=== PATIENT | male | born 1950 | race Caucasian/White ===

== ENCOUNTER 2020-08-13 09:56 | Day surgery (SDC) | payer MEDICARE, SELFPAY ==
[2020-08-08 14:00] VITALS: BMI 20.3
--- NOTE | 2020-08-12 11:54 | P.CONAN_ITS ---
Documented by User: Dahlia Hirsch 08/12/20 13:13 HPI - Anesthesia Eval Consult details Narrative: 70yo M for Colonoscopy [facility] Past Medical History Medical History (Updated 08/13/20 @ 12:26 by Cristina Spring) AAA (abdominal aortic aneurysm) without rupture Anemia Arthritis High cholesterol Hx of peripheral neuropathy Surgical History Surgical History History of back surgery History of hydrocelectomy Hx of arthroscopy of right knee Hx of colonoscopy Social History Social History Smoking Status: Former smoker Years Smoked: 40 Smoking Quit Date: 11/2019 Use of substances other than those prescribed or required for medical reasons: Yes Substance Use Frequency: Daily Advance Directives: No Advance Directives Information Provided: No Advance Directives on File: No Meds Allergies Allergy/AdvReac Type Severity Reaction Status Date / Time No Known Allergies Allergy Mild NONE Verified 08/08/20 14:03 Exam Exam Date and Time: August 12, 2020 1154 Height,Weight and Vital Signs: Height 6 ft Weight 68.039 kg Pertinent Lab Results Pertinent Lab Results: Laboratory Tests 06/04/20 06/04/20 10:13 10:13 WBC 3.5 L Hgb 11.6 L Hct 37.2 L Plt Count 171 Sodium 139 Potassium 4.4 Chloride 106 BUN 20 H Creatinine 1.06 Narrative Narrative: ABD AORTA US 10/2019: 4.1x4.2cm, no appreciable change from 03/2019 imaging (Plan for yearly surveillance per vascular note) EKG 05/2020: SB@50, no ischemic changes per cardiac note Assessment and Plan Assessment Anesthesia Assessment: Chart Reviewed Documented by User: Cristina Spring 08/13/20 12:28 [facility] Past Medical History Medical History (Updated 08/13/20 @ 12:26 by Cristina Spring) AAA (abdominal aortic aneurysm) without rupture Anemia Arthritis High cholesterol Hx of peripheral neuropathy Family History Family history of problems with anesthesia: No Surgical History Surgical History History of back surgery History of hydrocelectomy Hx of arthroscopy of right knee Hx of colonoscopy History of Problems with Anesthesia: No Social History Social History Smoking Status: Former smoker Years Smoked: 40 Smoking Quit Date: 11/2019 Use of substances other than those prescribed or required for medical reasons: Yes Substance Use Frequency: Daily Advance Directives: No Advance Directives Information Provided: No Advance Directives on File: No Meds Allergies Allergy/AdvReac Type Severity Reaction Status Date / Time No Known Allergies Allergy Mild NONE Verified 08/08/20 14:03 Exam Height,Weight and Vital Signs: Vital Signs Temp Pulse Resp BP Pulse Ox 08/13/20 11:14 97.2 F 65 16 134/78 99 Airway Mallampati Class: II TM Dist: >3cm Neck ROM: Full Heart: RRR Lungs: CTAB Assessment and Plan Assessment Anesthesia Assessment: Anesthesia Plan Discussed and Chart Reviewed Final Anesthetic Review NPO: Yes ASA Class: III Final Preanesthetic Review: No Changes in Pt Med Stat, Meds/Allgs Chart Reviewed, Consent Obtained/Reviewed and Anes Risks/Benef Reviewed Patient Risk: Intermediate Anesthetic Plan Anesthetic Plan: MAC: Disposition: Standard PACU
[2020-08-13 11:14] VITALS: BP 134/78; PULSE 65; RESP 16; TEMP 36.2; O2SAT 99
[2020-08-13] MEDS: Lactated Ringers 1,000 ML 100 ML IVCONT (11:48)
[2020-08-13 14:54] VITALS: BP 127/80; PULSE 60; RESP 12; TEMP 36.6; O2SAT 97
--- NOTE | 2020-08-13 14:59 | PM.PROC ---
Brief Operative Note Date of procedure: 08/13/20 Pre-op diagnosis: Colon cancer screening, hx of TA in 2007 Post-op diagnosis: other (Cecal polyp, TC polyp, Diverticulosis Sigmoid) Procedure: Colonoscopy with complex excisional polypectomy--cecum: Orise 12cc. multiple excisional sites, RESOLUTION CLIPPING, SECOND site TC 1mm polyp straddling fold. Anesthesia: MAC (RA Millard) Surgeon: Carmen Hendrickson Estimated blood loss (mL): 0 Pathology: other (Cecal, transverse colon.) Condition: stable Disposition: PACU
[2020-08-13 15:13] VITALS: BP 123/76; PULSE 52; RESP 17; TEMP 36.6; O2SAT 98
--- NOTE | 2020-08-13 15:38 | HO.POSTANES ---
Post Anesthesia Evaluation Post Anesthesia Evaluation Vital Signs: Vital Signs Temp Pulse Resp BP Pulse Ox 08/13/20 15:13 97.9 F 52 17 123/76 98 08/13/20 14:54 97.9 F 60 12 127/80 97 08/13/20 11:14 97.2 F 65 16 134/78 99 Anesthesia: Monitored Mental Status: Awake Pain Control: Satisfactory Nausea/Vomiting: None Hydration: Adequate Anesthesia-Related Issues: No Anes. Related Issues
--- NOTE | 2020-11-13 10:00 | OP_ITS ---
SURGEON: Carmen Hendrickson MD PREOPERATIVE DIAGNOSIS: See below. POSTOPERATIVE DIAGNOSIS: Colonic polyps. PROCEDURE PERFORMED: Colonoscopy with excisional complex polypectomy in the cecum, excision of diminutive polyp in the splenic flexure. There was use of approximately 12 mL of ORISE. Resolution clipping x2. ESTIMATED BLOOD LOSS: Less than 10 mL. Resolution clipping was placed. COMPLICATIONS: No complications. ANESTHESIA: Monitored. ANESTHESIOLOGIST: Angela Millard CRNA. ASSISTANTS: No geological survey field assistant. SPECIMENS: Specimen removed; cecal and splenic. PREOPERATIVE DIAGNOSES: Colon cancer screening. The patient has a history of colonoscopy done in 2007 with the removal of a small tubular adenoma. Medical history includes hyperlipidemia, former smoker, dilated abdominal aorta in the mid range of the proximal aorta at 4 cm. He has had no clinical changes medically since his preprocedure tele-visit in May of this year. [employer] AUTOMOTIVE TECHNICIAN: Dr. Hendrickson. CONDITION: Postop, stable. FINDINGS: Digital rectal exam revealed prostate to be slightly firm. Video colonoscope was introduced without difficulty. It was navigated into the rectosigmoid and sigmoid. Prep was fair to good. There was residual turbid fluid that required a moderate amount of flushing and suctioning. Diverticula were noted in the sigmoid colon. The scope advanced slowly into the descending, transverse, ascending colon down into the cecum. Appendiceal orifice was seen. Ileocecal valve was well seen. On a fold in the cecum, there was a polyp that was flat and appeared multicentric. Due to the degree of flatness of this polyp, snare removal could not be done. Abnormal tissue was removed excisionally with multiple bites with the cold biopsy forceps. The mucosal defect was reapposed with resolution clips. Complex polypectomy in the cecum. Rest of exam was unremarkable. Anorectal verge was clear. Plan: Due to complexity of the cecal polyp repeat Colonoscopy will be done in 2-3 years. Carmen Hendrickson MD MEN/MODL / [id number] MTDD
== END 2020-08-13 15:36 | disposition home or self-care (01) ==
PROVIDERS: PCP Internal Medicine; Visit Provider Internal Medicine Gastroenterology
PROC: 0DJD8ZZ Inspection of Lower Intestinal Tract, Via Natural or Artificial Opening Endoscopic (ICD-10-PCS; CPT 45378; principal; 2020-08-13 11:40)
DX: Z12.11 Encounter for screening for malignant neoplasm of colon (principal); Z86.010 Personal history of colon polyps; D12.0 Benign neoplasm of cecum; D12.3 Benign neoplasm of transverse colon; K57.30 Diverticulosis of large intestine without perforation or abscess without bleeding; E78.00 Pure hypercholesterolemia, unspecified; Z79.899 Other long term (current) drug therapy; Z87.891 Personal history of nicotine dependence
CPT/HCPCS: 45380; 45381; 88305

== ENCOUNTER 2020-08-14 14:35 | Outpatient (REF) | payer MEDICARE, SELFPAY ==
--- NOTE | 2020-08-14 15:32 | XR_ITS ---
EXAMINATION: BILATERAL HAND AND WRIST X-RAY CLINICAL INFORMATION: Pain COMPARISON: None TECHNIQUE: 4 views of each hand and wrist FINDINGS: Right: Bone alignment is normal. No fracture or dislocation is seen. There is arthritis at the IP joint of the thumb, DIP joint of the second finger and first USP joint of the thumb. There is a 1 x 4 mm soft tissue calcification adjacent to the proximal phalanx of the thumb. Left: There is slight radial subluxation at the third MCP joint. Bone alignment is otherwise normal. No fracture or dislocation is seen. There is arthritis at the IP joints of the first, second and third fingers. There is arthritis at the third MCP joint. There is a small soft tissue calcification adjacent to the ulnar side of the proximal phalanx of the second finger in near the PIP joint. XR/XR hand wrist RT IMPRESSION: Right: Arthritis at the IP joints and first USP joint of the thumb. Left: Arthritis at the IP joints of the first second and third fingers and third MCP joint.
--- NOTE | 2020-08-14 15:32 | XR_ITS ---
EXAMINATION: BILATERAL HAND AND WRIST X-RAY CLINICAL INFORMATION: Pain COMPARISON: None TECHNIQUE: 4 views of each hand and wrist FINDINGS: Right: Bone alignment is normal. No fracture or dislocation is seen. There is arthritis at the IP joint of the thumb, DIP joint of the second finger and first CUSTODIAL joint of the thumb. There is a 1 x 4 mm soft tissue calcification adjacent to the proximal phalanx of the thumb. Left: There is slight radial subluxation at the third MCP joint. Bone alignment is otherwise normal. No fracture or dislocation is seen. There is arthritis at the IP joints of the first, second and third fingers. There is arthritis at the third MCP joint. There is a small soft tissue calcification adjacent to the ulnar side of the proximal phalanx of the second finger in near the PIP joint. XR/XR hand wrist LT IMPRESSION: Right: Arthritis at the IP joints and first CUSTODIAL joint of the thumb. Left: Arthritis at the IP joints of the first second and third fingers and third MCP joint.
[2020-08-14 16:00] LABS: Imm Gran Abs Auto 0.01 X10*3/uL (0.00-0.03); Imm Gran Pct Auto 0.3 % (0.0-0.4); MANUAL DIFF FLAG SCAN; Mean Corpuscular Volume 85.7 fL (80-98); PLT CLUMP 1; SCAN SMEAR FLAG 1
[2020-08-14 16:02] LABS: Basophils Percent Auto 0.8 % (0-2); Eosinophils Absolute Auto 0.1 X10*3/uL (0.0-0.4); Eosinophils Percent Auto 1.7 % (0-4); Hematocrit 37.7 % (42-52); Hemoglobin 12.2 g/dl (14.0-18.0); Lymphocytes Percent Auto 28.6 % (20-40); Mean Corpuscular HGB Conc 32.4 g/dl (31.0-36.0); Mean Corpuscular Hemoglobin 27.7 pg (27.0-33.0); Mean Platelet Volume 9.6 fL (9.4-12.4); Monocytes Absolute Auto 0.8 X10*3/uL (0.1-1.2); Monocytes Percent Auto 22.4 % (2-11); Neutrophils Absolute Auto 1.6 X10*3/uL (2.0-8.3); Neutrophils Percent Auto 46.2 % (45-73); Platelet Count 147 X10*3/uL (160-400); White Blood Count 3.5 X10*3/uL (4.8-10.8)
[2020-08-14 16:03] LABS: PLT ABN DIST 1
[2020-08-14 16:25] LABS: SLIDE REVIEW VERIFIED
[2020-08-14 16:40] LABS: Alanine Aminotransferase 10 U/L (0-40); Albumin Level 4.2 g/dL (3.5-5.0); Alkaline Phosphatase 59 U/L (39-117); Anion Gap 13 (12-20); Aspartate Amino Transferase 20 U/L (5-37); Bilirubin Total 0.9 mg/dL (0.0-1.0); Blood Urea Nitrogen 22 mg/dL (9-16); Calcium 8.5 mg/dL (8.4-10.2); Carbon Dioxide 26 mmol/L (22-29); Chloride 101 mmol/L (96-108); Estimated Glomerular Filt Rate 59; Glucose Random 103 mg/dL (60-115); Potassium 3.7 mmol/l (3.3-5.1); Sodium 136 mmol/L (135-145); Total Protein 7.1 g/dL (6.5-8.0)
[2020-08-14 16:52] LABS: Erythrocyte Sedimentation Rate 18 MM/HR (0-15)
[2020-08-14 16:55] LABS: Rheumatoid Factor 399.1 IU/mL (<15.0)
[2020-08-17 13:52] LABS: Antibody to SS-A Antigen <1.0 NEG AI (<1.0 NEG); Antibody to SS-B Antigen <1.0 NEG AI (<1.0 NEG)
[2020-08-18 15:06] LABS: Anti Nuclear Antibody Pattern Nuclear, Homogeneous; Anti Nuclear Antibody Screen POSITIVE (NEGATIVE); Anti Nuclear Antibody Titer 1:40 titer
[2020-08-19 21:46] LABS: Cyclic Citrullinated Peptide >250 UNITS
== END 2020-08-14 14:36 | disposition home or self-care (01) ==
LOC: HO.LAB 14:35
PROVIDERS: PCP Internal Medicine; Referring Provider Internal Medicine; Visit Provider Student in an Organized Health Care Education/Training Program
DX: M25.50 Pain in unspecified joint (principal); M72.2 Plantar fascial fibromatosis
CPT/HCPCS: 36415; 73110; 73130; 80053; 85025; 85652; 86038; 86039; 86140; 86200; 86235; 86431; 99202

== ENCOUNTER 2020-08-20 10:29 | Outpatient (REF) | payer MEDICARE, SELFPAY ==
--- NOTE | 2020-08-20 10:33 | CT_ITS ---
EXAMINATION: CT CHEST SCREENING CLINICAL INFORMATION: Smoking history COMPARISON: Previous abdominal and pelvic CT scan March 2019 and chest x-ray July 2008 TECHNIQUE: Multidetector volumetric CT imaging of the chest is performed without contrast using low dose technique. Additional 2D coronal and sagittal reformatted images and axial 3D maximum intensity projection (MIP) images are generated on the CT workstation. This CT examination was performed using dose optimization techniques as appropriate, variously including the following: *Automated exposure control *Adjustment of mA and/or kV according to patient size (this includes techniques or standardized protocols for targeted exams where dose is matched to indication/reason for exam; i.e. extremities or head) *Use of iterative reconstruction technique DLP: 48 mGy-cm FINDINGS: LUNGS: There is mild biapical pleural and parenchymal scarring. There is mild paraseptal emphysema. There is a 3 mm right upper lobe nodule axial image 219. There is question of tiny 1 mm right upper lobe nodules axial image 256 and 261 series 5. There is question of mild peripheral interstitial disease at the lung bases. No endobronchial or endotracheal lesion is seen. MEDIASTINUM: There is a small calcified right paratracheal mediastinal lymph node. There are small noncalcified mediastinal lymph nodes. No enlarged hilar or mediastinal lymph nodes are seen. The visualized thyroid gland is unremarkable. The ascending thoracic aorta is dilated measuring 4.5 cm. The descending thoracic aorta is slightly dilated measuring 3.3 cm. The heart does not appear enlarged. There is moderate to severe coronary artery calcification. There is no pericardial effusion. PLEURA: There is no pleural effusion. No pleural mass or thickening. AXILLA: No lymphadenopathy. UPPER ABDOMEN: There is a low-attenuation lesion in the left lobe of the liver measuring 1 cm axial image 54 series 3. This is similar to previous CT March 2019 probably represents a cyst. The visualized upper abdominal aorta is ectatic measuring 3 x 3.4 cm in transverse and AP dimension. OSSEOUS STRUCTURES: There are degenerative changes of the spine. CT/CT lung screening IMPRESSION: Mild emphysema. Question mild peripheral interstitial disease Small pulmonary nodules or micronodules. Moderate to severe coronary artery calcification. Dilated thoracic and visualized upper abdominal aorta. ASSESSMENT: Lung-RADS category 2: Benign RECOMMENDATION: Annual low-dose chest CT follow-up recommended.
[2020-08-20 13:57] LABS: Glucose Urine UA NEG (NEG); Leukocyte Esterase Urine NEG (NEG); Nitrite Urine NEG (NEG); Specific Gravity - Urine 1.025 (1.005-1.025); Urine Blood NEG (NEG); Urine Ketones NEG (NEG); Urine Protein NEG (NEG-TRACE)
[2020-08-20 13:59] LABS: Appearance Urine CLEAR; Color Urine YELLOW
[2020-08-20 14:12] LABS: RBC Urine 0 /HPF (0); WBC Urine 0 /HPF (0-4)
[2020-08-21 07:28] LABS: Hepatitis A Antibody IgM 0.19 Index (0-0.79); ~Hepatitis A Antibody IgM Nonreactive (Nonreactive)
[2020-08-21 11:37] LABS: Complement C3 133 mg/dL (82-185)
[2020-08-21 13:36] LABS: Anti DNA DS Antibody <1 IU/mL; SM/Ribonucleoprotein Ab <1.0 NEG AI (<1.0 NEG); Smith Protein <1.0 NEG AI (<1.0 NEG)
[2020-08-22 04:05] LABS: HBS Num1 0.11 mIU/mL (0-7.99); HBc Num1 0.07 S/CO (0.00-0.79); Hepatitis B Core Antibody Nonreactive (Nonreactive); ~HepC Num1 0.15 S/CO (0.00-0.79); ~Hepatitis B Surface Antibody NONREACTIVE (Nonreactive); ~Hepatitis C Antibody Nonreactive (Nonreactive)
[2020-08-22 04:16] LABS: HBsAGNum1 0.15 S/CO (0.00-0.99); Hepatitis B Surface Antigen Negative (Negative)
[2020-08-22 20:37] LABS: TS Negative Control Passed; TS Panel A 0; TS Panel B 0; TS Positive Control Passed; TSpotTB Negative (SeeBelow)
== END 2020-08-20 10:30 | disposition home or self-care (01) ==
LOC: HO.CT 10:29
PROVIDERS: Absent Provider Student in an Organized Health Care Education/Training Program; PCP Internal Medicine; Visit Provider Surgery
DX: Z12.2 Encounter for screening for malignant neoplasm of respiratory organs (principal); Z87.891 Personal history of nicotine dependence; D12.6 Benign neoplasm of colon, unspecified; K59.00 Constipation, unspecified; R14.0 Abdominal distension (gaseous)
CPT/HCPCS: 36415; 71250; 81001; 86160; 86225; 86235; 86481; 86704; 86706; 86709; 86803; 87340; 99212

== ENCOUNTER → 2020-09-11 08:17 | Outpatient (BNVA) | payer MEDICARE, SELFPAY | PROVIDERS: PCP Internal Medicine; Referring Provider Internal Medicine; Visit Provider Student in an Organized Health Care Education/Training Program | DX: M05.9 Rheumatoid arthritis with rheumatoid factor, unspecified (principal); M19.90 Unspecified osteoarthritis, unspecified site | CPT/HCPCS: 99212 ==

== ENCOUNTER → 2020-12-03 10:06 | Outpatient (BNVA) | payer MEDICARE, SELFPAY | PROVIDERS: Visit Provider Urology | DX: R35.1 Nocturia (principal); R39.12 Poor urinary stream; N32.0 Bladder-neck obstruction | CPT/HCPCS: 81002; 99202 ==

== ENCOUNTER 2020-12-04 11:23 | Outpatient (REF) | payer MEDICARE, SELFPAY ==
[2020-12-04 13:06] LABS: Basophils Absolute Auto 0.1 X10*3/uL (0.0-0.2); Eosinophils Absolute Auto 0.1 X10*3/uL (0.0-0.4); Hemoglobin 11.5 g/dl (14.0-18.0); MANUAL DIFF FLAG SCAN; Neutrophils Percent Auto 43.7 % (45-73); PLT CLUMP 1; Red Cell Distribution Width 19.6 % (11.0-16.0); SCAN SMEAR FLAG 1
[2020-12-04 13:08] LABS: Basophils Percent Auto 1.6 % (0-2); Eosinophils Percent Auto 1.9 % (0-4); Hematocrit 35.1 % (42-52); Imm Gran Abs Auto 0.01 X10*3/uL (0.00-0.03); Imm Gran Pct Auto 0.3 % (0.0-0.4); Lymphocytes Absolute Auto 1.3 X10*3/uL (1.2-4.9); Mean Corpuscular HGB Conc 32.8 g/dl (31.0-36.0); Mean Corpuscular Volume 91.6 fL (80-98); Mean Platelet Volume 10.5 fL (9.4-12.4); Monocytes Absolute Auto 0.7 X10*3/uL (0.1-1.2); Monocytes Percent Auto 18.5 % (2-11); Neutrophils Absolute Auto 1.6 X10*3/uL (2.0-8.3); Platelet Count 142 X10*3/uL (160-400); Red Blood Count 3.83 X10*6/uL (4.60-5.80); White Blood Count 3.7 X10*3/uL (4.8-10.8)
[2020-12-04 13:37] LABS: Alanine Aminotransferase 41 U/L (0-40); Albumin Level 4.3 g/dL (3.5-5.0); Alkaline Phosphatase 54 U/L (39-117); Anion Gap 10 (12-20); Aspartate Amino Transferase 31 U/L (5-37); Blood Urea Nitrogen 23 mg/dL (9-16); C Reactive Protein 0.14 mg/dL (< or = 0.50); Carbon Dioxide 28 mmol/L (22-29); Chloride 105 mmol/L (96-108); Estimated Glomerular Filt Rate > 60; Glucose Random 89 mg/dL (60-115); Potassium 4.5 mmol/L (3.3-5.1); Sodium 138 mmol/L (135-145); Total Protein 6.7 g/dL (6.5-8.0)
[2020-12-04 14:05] LABS: SLIDE REVIEW VERIFIED
[2020-12-04 14:08] LABS: Prostate Specific Antigen 2.64 ng/mL (<0.05-4.0)
[2020-12-04 14:18] LABS: Erythrocyte Sedimentation Rate 7 MM/HR (0-15)
== END 2020-12-04 11:24 | disposition home or self-care (01) ==
LOC: HO.LAB 11:23
PROVIDERS: Student in an Organized Health Care Education/Training Program; Visit Provider Urology
DX: Z12.5 Encounter for screening for malignant neoplasm of prostate (principal); M05.9 Rheumatoid arthritis with rheumatoid factor, unspecified; N13.8 Other obstructive and reflux uropathy; N40.1 Benign prostatic hyperplasia with lower urinary tract symptoms
CPT/HCPCS: 36415; 80053; 84153; 85025; 85652; 86140

== ENCOUNTER → 2020-12-13 10:00 | Outpatient (BNVA) | payer MEDICARE, SELFPAY | PROVIDERS: Visit Provider Student in an Organized Health Care Education/Training Program | DX: M05.9 Rheumatoid arthritis with rheumatoid factor, unspecified (principal); M25.50 Pain in unspecified joint | CPT/HCPCS: 99212 ==

== ENCOUNTER 2021-01-20 08:31 | Outpatient (REF) | payer MEDICARE, SELFPAY ==
--- NOTE | ~2021-01-20 | US_ITS ---
EXAMINATION: US PELVIS LIMITED (BLADDER) CLINICAL INFORMATION: Poor urinary stream. COMPARISON: CT abdomen and pelvis 05/03/2019. TECHNIQUE: Real-time imaging of the bladder. FINDINGS: BLADDER: Well distended and normal. Bilateral ureteral jets are demonstrated. Prevoid bladder volume is 316 mL. Postvoid bladder volume is 18.0 mL. Normal size prostate with a volume of 33.5 mL. US/US bladder IMPRESSION: Normal appearance of the bladder. No significant prostatomegaly. Post void residual volume of 18 mL.
== END 2021-01-20 08:32 | disposition home or self-care (01) ==
LOC: HO.HMGCX 08:31
PROVIDERS: Visit Provider Urology
DX: N32.0 Bladder-neck obstruction (principal); R39.12 Poor urinary stream
CPT/HCPCS: 76857

== ENCOUNTER → 2021-01-28 09:52 | Outpatient (BNVA) | payer MEDICARE, SELFPAY | PROVIDERS: PCP Internal Medicine; Visit Provider Urology | DX: Z13.9 Encounter for screening, unspecified (principal); N32.0 Bladder-neck obstruction; R35.1 Nocturia | CPT/HCPCS: 52000; 81002; 99212 ==

== ENCOUNTER 2021-03-11 08:02 | Outpatient (REF) | payer MEDICARE, SELFPAY ==
[2021-03-11 09:54] LABS: Eosinophils Absolute Auto 0.1 X10*3/uL (0.0-0.4); MANUAL DIFF FLAG SCAN; Neutrophils Percent Auto 36.2 % (45-73); PLT CLUMP 1; SCAN SMEAR FLAG 1
[2021-03-11 09:56] LABS: Basophils Percent Auto 1.4 % (0-2); Eosinophils Percent Auto 2.4 % (0-4); Hematocrit 37.5 % (42-52); Lymphocytes Absolute Auto 0.9 X10*3/uL (1.2-4.9); Lymphocytes Percent Auto 32.8 % (20-40); Mean Corpuscular Hemoglobin 28.8 pg (27.0-33.0); Mean Corpuscular Volume 90.1 fL (80-98); Mean Platelet Volume 10.1 fL (9.4-12.4); Monocytes Absolute Auto 0.8 X10*3/uL (0.1-1.2); Monocytes Percent Auto 27.2 % (2-11); Platelet Count 117 X10*3/uL (160-400); Red Blood Count 4.16 X10*6/uL (4.60-5.80); Red Cell Distribution Width 16.5 % (11.0-16.0); White Blood Count 2.9 X10*3/uL (4.8-10.8)
[2021-03-11 10:10] LABS: PLT ABN DIST 1
[2021-03-11 10:27] LABS: SLIDE REVIEW VERIFIED
[2021-03-11 10:46] LABS: Alanine Aminotransferase 29 U/L (0-40); Alkaline Phosphatase 61 U/L (39-117); Anion Gap 13 (12-20); Aspartate Amino Transferase 31 U/L (5-37); Bilirubin Total 1.5 mg/dL (0.0-1.0); Blood Urea Nitrogen 24 mg/dL (9-16); C Reactive Protein 1.08 mg/dL (< or = 0.50); Calcium 8.8 mg/dL (8.4-10.2); Carbon Dioxide 24 mmol/L (22-29); Chloride 106 mmol/L (96-108); Estimated Glomerular Filt Rate > 60; Glucose Random 94 mg/dL (60-115); Potassium 4.3 mmol/L (3.3-5.1); Sodium 139 mmol/L (135-145); Total Protein 6.9 g/dL (6.5-8.0)
[2021-03-11 11:24] LABS: Erythrocyte Sedimentation Rate 18 MM/HR (0-15)
== END 2021-03-11 08:03 | disposition home or self-care (01) ==
LOC: HO.LAB 08:02
PROVIDERS: PCP Internal Medicine; Visit Provider Student in an Organized Health Care Education/Training Program
DX: M05.9 Rheumatoid arthritis with rheumatoid factor, unspecified (principal); M72.2 Plantar fascial fibromatosis; G62.9 Polyneuropathy, unspecified; M79.642 Pain in left hand; M79.641 Pain in right hand; M25.512 Pain in left shoulder; E78.00 Pure hypercholesterolemia, unspecified; Z87.891 Personal history of nicotine dependence; Z79.82 Long term (current) use of aspirin; Z79.899 Other long term (current) drug therapy
CPT/HCPCS: 36415; 80053; 85025; 85652; 86140; 99212

== ENCOUNTER 2021-05-15 09:20 | Outpatient (REF) | payer MEDICARE, SELFPAY ==
[2021-05-15 10:51] LABS: Basophils Percent Auto 1.7 % (0-2); Eosinophils Absolute Auto 0.1 X10*3/uL (0.0-0.4); Eosinophils Percent Auto 3.4 % (0-4); Hematocrit 35.1 % (42-52); Lymphocytes Absolute Auto 0.8 X10*3/uL (1.2-4.9); Lymphocytes Percent Auto 36.2 % (20-40); MANUAL DIFF FLAG SCAN; Mean Corpuscular HGB Conc 31.3 g/dl (31.0-36.0); Mean Corpuscular Hemoglobin 27.4 pg (27.0-33.0); Mean Corpuscular Volume 87.3 fL (80-98); Mean Platelet Volume 9.5 fL (9.4-12.4); Monocytes Absolute Auto 0.7 X10*3/uL (0.1-1.2); Monocytes Percent Auto 28.9 % (2-11); Neutrophils Absolute Auto 0.7 X10*3/uL (2.0-8.3); Neutrophils Percent Auto 29.8 % (45-73); Platelet Count 115 X10*3/uL (160-400); Red Blood Count 4.02 X10*6/uL (4.60-5.80); Red Cell Distribution Width 17.2 % (11.0-16.0); SCAN SMEAR FLAG 1
[2021-05-15 10:56] LABS: White Blood Count 2.3 X10*3/uL (4.8-10.8)
[2021-05-15 10:59] LABS: Glucose Urine UA NEG (NEG); Leukocyte Esterase Urine NEG (NEG); Nitrite Urine NEG (NEG); PH 5.5 (5.0-8.0); Specific Gravity - Urine >= 1.030 (1.005-1.025); Urine Blood NEG (NEG); Urine Ketones NEG (NEG); Urine Protein TRACE MG/DL (NEG-TRACE)
[2021-05-15 11:08] LABS: Alanine Aminotransferase 18 U/L (0-40); Albumin Level 3.9 g/dL (3.5-5.0); Alkaline Phosphatase 60 U/L (39-117); Anion Gap 10 (12-20); Aspartate Amino Transferase 26 U/L (5-37); Blood Urea Nitrogen 21 mg/dL (9-16); C Reactive Protein 0.72 mg/dL (< or = 0.50); Calcium 8.9 mg/dL (8.4-10.2); Carbon Dioxide 25 mmol/L (22-29); Chloride 108 mmol/L (96-108); Estimated Glomerular Filt Rate > 60; Glucose Random 95 mg/dL (60-115); Potassium 4.2 mmol/L (3.3-5.1); Sodium 139 mmol/L (135-145); Total Protein 6.8 g/dL (6.5-8.0)
[2021-05-15 11:20] LABS: Appearance Urine CLEAR; Color Urine YELLOW
[2021-05-15 11:25] LABS: Erythrocyte Sedimentation Rate 23 MM/HR (0-15)
[2021-05-15 11:56] LABS: Bacteria Urine TRACE /LPF; RBC Urine 0 /HPF (0); Squamous Epithelial Cell Urine TRACE /LPF; WBC Urine 0-2 /HPF (0-4)
[2021-05-15 12:29] LABS: SLIDE REVIEW VERIFIED
== END 2021-05-15 09:21 | disposition home or self-care (01) ==
LOC: HO.LAB 09:20
PROVIDERS: PCP Internal Medicine; Visit Provider Student in an Organized Health Care Education/Training Program
DX: M05.9 Rheumatoid arthritis with rheumatoid factor, unspecified (principal); N32.0 Bladder-neck obstruction
CPT/HCPCS: 36415; 80053; 81001; 85025; 85652; 86140; 99212

== ENCOUNTER → 2021-06-19 10:42 | Outpatient (BNVA) | payer MEDICARE, SELFPAY | PROVIDERS: PCP Internal Medicine; Visit Provider Internal Medicine | DX: J44.9 Chronic obstructive pulmonary disease, unspecified (principal); M05.9 Rheumatoid arthritis with rheumatoid factor, unspecified; D61.818 Other pancytopenia; Z87.891 Personal history of nicotine dependence | CPT/HCPCS: 99202 ==

== ENCOUNTER 2021-07-04 08:49 | Outpatient (REF) | payer MEDICARE, SELFPAY ==
--- NOTE | 2021-07-04 16:45 | PFT_ITS ---
FLOWS: FEV1 97% of predicted at 3.33 L. FVC 101% of predicted at 4.75 L. FEV1 to FVC ratio of 0.70. No bronchodilator response except in small to medium airways. LUNG VOLUMES: Total lung capacity 93% of predicted at 6.93 L. Residual volume 99% of predicted at 2.61 L. Slow vital capacity 89% of predicted at 4.33 L. Expiratory reserve volume 139% of predicted at 1.92 L. Diffusion capacity is moderately decreased. IMPRESSION: Mild reversible obstructive ventilatory defect with no bronchodilator response except in small to medium airways. Decreased diffusion capacity suggests emphysema. MD DONTA Walker/MODL / [id number]
== END 2021-07-04 08:50 | disposition home or self-care (01) ==
LOC: HO.RESP 08:49
PROVIDERS: PCP Internal Medicine; Visit Provider Internal Medicine
DX: J44.9 Chronic obstructive pulmonary disease, unspecified (principal); Z87.891 Personal history of nicotine dependence
CPT/HCPCS: 94060; 94727; 94729

== ENCOUNTER → 2021-07-14 10:27 | Outpatient (BNVA) | payer MEDICARE, SELFPAY | PROVIDERS: PCP Internal Medicine; Visit Provider Nurse Practitioner Family | DX: M05.9 Rheumatoid arthritis with rheumatoid factor, unspecified (principal); M72.2 Plantar fascial fibromatosis | CPT/HCPCS: 99212 ==

== ENCOUNTER 2021-07-23 09:59 | Outpatient (REF) | payer MEDICARE, SELFPAY ==
[2021-07-23 11:15] LABS: MANUAL DIFF FLAG NO
[2021-07-23 11:57] LABS: Basophils Absolute Auto 0.1 X10*3/uL (0.0-0.2); Basophils Percent Auto 1.2 % (0-2); Eosinophils Percent Auto 0.9 % (0-4); Hematocrit 37.6 % (42-52); Hemoglobin 11.9 g/dl (14.0-18.0); Imm Gran Abs Auto 0.01 X10*3/uL (0.00-0.03); Imm Gran Pct Auto 0.2 % (0.0-0.4); Lymphocytes Absolute Auto 1.5 X10*3/uL (1.2-4.9); Lymphocytes Percent Auto 35.8 % (20-40); Mean Corpuscular HGB Conc 31.6 g/dl (31.0-36.0); Mean Corpuscular Volume 85.3 fL (80-98); Monocytes Absolute Auto 0.8 X10*3/uL (0.1-1.2); Monocytes Percent Auto 18.1 % (2-11); Neutrophils Absolute Auto 1.9 X10*3/uL (2.0-8.3); Neutrophils Percent Auto 43.8 % (45-73); Platelet Count 187 X10*3/uL (160-400); Red Blood Count 4.41 X10*6/uL (4.60-5.80); Red Cell Distribution Width 18.5 % (11.0-16.0); White Blood Count 4.3 X10*3/uL (4.8-10.8)
[2021-07-23 12:27] LABS: Alanine Aminotransferase 22 U/L (0-40); Albumin Level 4.1 g/dL (3.5-5.0); Alkaline Phosphatase 53 U/L (39-117); Anion Gap 10 (12-20); Aspartate Amino Transferase 22 U/L (5-37); Bilirubin Total 0.7 mg/dL (0.0-1.0); Blood Urea Nitrogen 23 mg/dL (9-16); Calcium 9.1 mg/dL (8.4-10.2); Carbon Dioxide 29 mmol/L (22-29); Chloride 105 mmol/L (96-108); Estimated Glomerular Filt Rate > 60; Glucose Random 80 mg/dL (60-115); Potassium 3.9 mmol/L (3.3-5.1); Sodium 140 mmol/L (135-145); Total Protein 6.9 g/dL (6.5-8.0)
[2021-07-23 12:38] LABS: Erythrocyte Sedimentation Rate 12 MM/HR (0-15)
== END 2021-07-23 10:00 | disposition home or self-care (01) ==
LOC: HO.LAB 09:59
PROVIDERS: Absent Provider Nurse Practitioner Family; PCP Internal Medicine; Visit Provider Internal Medicine
DX: M05.9 Rheumatoid arthritis with rheumatoid factor, unspecified (principal); J44.9 Chronic obstructive pulmonary disease, unspecified; I71.4 Abdominal aortic aneurysm, without rupture; E78.00 Pure hypercholesterolemia, unspecified; Z87.891 Personal history of nicotine dependence; Z79.52 Long term (current) use of systemic steroids; Z79.899 Other long term (current) drug therapy
CPT/HCPCS: 36415; 80053; 85025; 85652; 86140; 99212

== ENCOUNTER → 2021-07-30 09:39 | Outpatient (BNVA) | payer MEDICARE, SELFPAY | PROVIDERS: PCP Internal Medicine; Visit Provider Urology | DX: N32.0 Bladder-neck obstruction (principal); R39.12 Poor urinary stream | CPT/HCPCS: 99212 ==

== ENCOUNTER → 2021-09-23 12:41 | Outpatient (BNVA) | payer MEDICARE, SELFPAY | PROVIDERS: PCP Internal Medicine; Visit Provider Urology | DX: N32.0 Bladder-neck obstruction (principal) | CPT/HCPCS: 52000; 99212 ==

== ENCOUNTER 2021-11-10 06:39 | Day surgery (SDC) | payer MEDICARE, SELFPAY ==
--- NOTE | 2021-11-07 12:59 | HO.ANESPROP2 ---
Documented by User: Dahlia Hirsch NP 11/07/21 13:02 HPI - Anesthesia Eval Consult details Narrative: 71yo M for Laser Ablation Prostate w/Green Light PMFSH Active Problems Active Problems: All Active Problems (Updated 11/04/21 @ 08:29 by Nikki Addison RN) Polyarthralgia (Acute) Plantar fasciitis, bilateral (Acute) Tubular adenoma of colon (Acute) Constipation (Acute) Abdominal bloating (Acute) JOSE positive (Acute) Seropositive rheumatoid arthritis (Acute) Bladder outlet obstruction (Acute) Weak urinary stream (Acute) Nocturia more than twice per night (Acute) Pancytopenia (Chronic) COPD (chronic obstructive pulmonary disease) (Acute) History of smoking at least 1 pack per day for at least 30 years (Acute) Past Medical History Medical History (Updated 11/04/21 @ 08:29 by Nikki Addison RN) AAA (abdominal aortic aneurysm) without rupture Anemia Arthritis COPD (chronic obstructive pulmonary disease) Hematuria Hematuria High cholesterol History of smoking at least 1 pack per day for at least 30 years Hx of peripheral neuropathy Rheumatoid arthritis Family History Family History Sister Rheumatoid arthritis Cancer Sister Bronchitis Family history of problems with anesthesia: No Surgical History Surgical History (Updated 11/04/21 @ 08:19 by Nikki Addison RN) History of back surgery History of hydrocelectomy Hx of arthroscopy of right knee Hx of colonoscopy (~2007) History of Problems with Anesthesia: No Social History Social History Alcohol intake: never Patient Tobacco Use Status: Former Tobacco user Cigarette Packs Per Day: 1.5 Years Smoked: 45 Use of substances other than those prescribed or required for medical reasons: Yes Substance Use Type: Marijuana Substance Use Frequency: Daily Are you DNR?: No Advance Directives: No Advance Directives Information Provided: No Advance Directives on File: No Recently lost weight without trying: Unsure Nutrition Risks: No Nutritional Risk Meds Allergies Allergy/AdvReac Type Severity Reaction Status Date / Time No Known Allergies Allergy Mild NONE Verified 09/23/21 12:59 Home Medications Medication Instructions Recorded Confirmed Last Taken Type multivitamin 1 tab PO DAILY 12/16/20 11/03/21 Unknown History atorvastatin 20 mg tablet 20 mg PO DAILY 01/28/21 11/03/21 Unknown History aspirin 81 mg tablet,delayed 1 tab PO DAILY 02/18/21 11/03/21 Unknown History release albuterol sulfate 90 mcg/actuation 2 puff INHALATION Q6H PRN 05/15/21 11/03/21 Unknown History aerosol inhaler Exam Exam Date and Time: November 07, 2021 1259 Height,Weight and Vital Signs: Height 6 ft Weight 67.132 kg Pertinent Lab Results Pertinent Lab Results: Laboratory Tests 07/23/21 07/23/21 11:14 11:14 WBC 4.3 L Hgb 11.9 L Hct 37.6 L Plt Count 187 D Sodium 140 Potassium 3.9 Chloride 105 Carbon Dioxide 29 BUN 23 H Creatinine 1.01 Assessment and Plan Assessment Anesthesia Assessment: Chart Reviewed Final Anesthetic Review Family History of Problems with Anesthesia: No History of Problems with Anesthesia: No Documented by User: Mariah Young MD 11/10/21 07:18 [facility] Past Medical History Medical History (Updated 11/04/21 @ 08:29 by Nikki Addison RN) AAA (abdominal aortic aneurysm) without rupture Anemia Arthritis COPD (chronic obstructive pulmonary disease) Hematuria Hematuria High cholesterol History of smoking at least 1 pack per day for at least 30 years Hx of peripheral neuropathy Rheumatoid arthritis Family History Family History Sister Rheumatoid arthritis Cancer Sister Bronchitis Surgical History Surgical History (Updated 11/04/21 @ 08:19 by Nikki Addison RN) History of back surgery History of hydrocelectomy Hx of arthroscopy of right knee Hx of colonoscopy (~2007) Social History Social History Alcohol intake: never Patient Tobacco Use Status: Former Tobacco user Cigarette Packs Per Day: 1.5 Years Smoked: 45 Use of substances other than those prescribed or required for medical reasons: Yes Substance Use Type: Marijuana Substance Use Frequency: Daily Are you DNR?: No Advance Directives: No Advance Directives Information Provided: No Advance Directives on File: No Recently lost weight without trying: Unsure Nutrition Risks: No Nutritional Risk Meds Allergies Allergy/AdvReac Type Severity Reaction Status Date / Time No Known Allergies Allergy Mild NONE Verified 09/23/21 12:59 Home Medications Medication Instructions Recorded Confirmed Last Taken Type multivitamin 1 tab PO DAILY 12/16/20 11/03/21 Unknown History atorvastatin 20 mg tablet 20 mg PO DAILY 01/28/21 11/03/21 Unknown History aspirin 81 mg tablet,delayed 1 tab PO DAILY 02/18/21 11/03/21 Unknown History release albuterol sulfate 90 mcg/actuation 2 puff INHALATION Q6H PRN 05/15/21 11/03/21 Unknown History aerosol inhaler Exam Airway Mallampati Class: II (Missing upper teeth) TM Dist: >3cm Neck ROM: Full Heart: rrr Lungs: cta Assessment and Plan Assessment Anesthesia Assessment: Anesthesia Plan Discussed and Chart Reviewed Final Anesthetic Review NPO: Yes ASA Class: III Final Preanesthetic Review: No Changes in Pt Med Stat, Meds/Allgs Chart Reviewed and Consent Obtained/Reviewed Patient Risk: Intermediate Procedure Risk: Intermediate Anesthetic Plan Anesthetic Plan: GA Disposition: Standard PACU
[2021-11-10] VITALS (7 sets, daily range): BP systolic 118–133; BP diastolic 71–76; PULSE 51–62; RESP 16–20; TEMP 36.2–36.6; O2SAT 96–100
[2021-11-10] MEDS: Lactated Ringers 1,000 ML 100 ML IVCONT (07:09)
--- NOTE | 2021-11-10 09:53 | W.PM.OPN ---
Operative Note Operative Note Date of Service: 11/10/21 Narrative: PreOperative Diagnosis: Bladder outlet obstruction Post Operative Diagnosis: Bladder outlet obstruction Procedure: GreenLight laser enucleation of the prostate Surgeon: Dr Martín Awad Anesthesia: General Indications for procedure: History of bladder outlet obstruction. Treated with alpha-arnold and other medications. Still with symptoms. On cystoscopy in office has tight bladder neck. Recommendation for prostate procedure with laser enucleation of prostate. It has been discussed. Focus was placed on development of retrograde examination which is a normal part of this procedure. Procedure: After informed consent was verified the patient was brought to the operating room and placed in a supine position. Anesthesia was administered per protocol. Patient was placed in modified dorsal lithotomy position and prepped and draped in a sterile fashion. Safety pause time-out was confirmed. Antibiotics have been given. Twenty-four [place] laser cystoscope was inserted per urethra. No abnormalities found the anterior posterior urethra. The bladder was filled on both ureteric orifices were seen in normal position away from our area of interest. Using a GreenLight laser settings of 80 w incisions were made at the 5 and 7 o'clock position. They were taken down and then laterally on each side. They were brought from the bladder neck down to the level of the veru. These defined the lateral aspects of the median lobe area. The median lobe was ablated and enucleated tissue removed. Minimal impingement from lateral lobes. After medial area had been cleaned decision was made to complete procedure. When this was completed debris and pieces of prostate removed from the bladder. Both ureteric orifices were reviewed again in shown to be patent in away from any areas of energy damage. The apical area was reviewed in any stray ooze was controlled. A 22 [place] 30 cc balloon Jameson catheter was placed over stylet into the bladder. Clear efflux was obtained. 30 cc was placed in the balloon and gentle traction was placed. A snap was used to hold tension once the patient will be moved and transported. Once transportation its finish this novel be removed. A belladonna and opiate suppository was placed for postprocedure pain management. He tolerated procedure well was extubated in the operating and transferred in a stable condition to the recovery area. Pathology: none Drains: Jameson catheter
== END 2021-11-10 11:06 | disposition home or self-care (01) ==
PROVIDERS: PCP Internal Medicine; Visit Provider Urology
PROC: (CPT 52648; principal; 2021-11-10 08:40)
DX: N32.0 Bladder-neck obstruction (principal); R31.9 Hematuria, unspecified; R39.12 Poor urinary stream; D64.9 Anemia, unspecified; J44.9 Chronic obstructive pulmonary disease, unspecified; E78.00 Pure hypercholesterolemia, unspecified; M06.9 Rheumatoid arthritis, unspecified; Z87.891 Personal history of nicotine dependence; F12.90 Cannabis use, unspecified, uncomplicated
CPT/HCPCS: 52648; J1956; J3010

== ENCOUNTER → 2021-11-13 09:22 | Outpatient (BNVA) | payer MEDICARE, SELFPAY | PROVIDERS: PCP Internal Medicine; Visit Provider Urology | DX: Z46.6 Encounter for fitting and adjustment of urinary device (principal); N32.0 Bladder-neck obstruction; R33.9 Retention of urine, unspecified | CPT/HCPCS: 51700; 51798; 99212 ==

== ENCOUNTER 2021-11-19 08:36 | Outpatient (REF) | payer MEDICARE, SELFPAY ==
[2021-11-19 09:47] LABS: Alanine Aminotransferase 11 U/L (0-40); Aspartate Amino Transferase 18 U/L (5-37); Cholesterol 95 mg/dL; HDL Cholesterol 22 mg/dL; LDL Cholesterol Calculated 58 mg/dl; Triglycerides 76 mg/dL
== END 2021-11-19 08:37 | disposition home or self-care (01) ==
LOC: HO.LAB 08:36
PROVIDERS: PCP Internal Medicine; Visit Provider Internal Medicine Cardiovascular Disease
DX: I71.4 Abdominal aortic aneurysm, without rupture (principal)
CPT/HCPCS: 36415; 80061; 84450; 84460

== ENCOUNTER → 2021-12-24 09:11 | Outpatient (BNVA) | payer MEDICARE, SELFPAY | PROVIDERS: PCP Internal Medicine; Visit Provider Urology | DX: N32.0 Bladder-neck obstruction (principal) | CPT/HCPCS: 51798; 99212 ==

== ENCOUNTER → 2021-12-29 10:33 | Outpatient (BNVA) | payer MEDICARE, SELFPAY | PROVIDERS: PCP Internal Medicine; Visit Provider Surgery | DX: R22.0 Localized swelling, mass and lump, head (principal) | CPT/HCPCS: 99202 ==

== ENCOUNTER 2022-01-14 07:33 | Outpatient (REF) | payer MEDICARE, SELFPAY ==
[2022-01-14 07:38] VITALS: BMI 20.9
[2022-01-14 07:40] VITALS: BP 101/64; PULSE 56; RESP 16; TEMP 36.7; O2SAT 98
[2022-01-14 08:30] VITALS: BP 109/74; PULSE 54; RESP 16; O2SAT 98
--- NOTE | 2022-01-14 08:30 | W.PM.OPN ---
Operative Note Operative Note Date of Service: 01/14/22 Narrative: Preop diagnosis: Scalp nodules times 3 Postop diagnosis: Scalp nodules x3 Procedure: Excision of scalp nodules x3 under local anesthesia Surgeon: Rasta Mix MD Patient is 71-year-old male who wanted scalp masses on on the parietal area removed. I had seen him in the office for this. He was initially scheduled for removal of 2 scalp nodules but he had stated that he wanted a 3rd nodule removed He understood the technique of excision under local anesthesia. He was aware of the risks, benefits, and alternatives.. He was brought to the minor procedure room and placed in a reclining position. The area of the scalp nodules which were all on the parietal area was prepped and draped. Lidocaine 1% was used for local anesthesia. I made an incision on the skin overlying 1 scalp nodule using blade 15. This carried down to full-thickness skin subcutaneous fat. This was about a 7mm nodule. I dissected this off of the rest of subcutaneous layer. This was not clearly defined I closed the incision with full-thickness nylon 3-0 interrupted sutures. I proceeded to make another incision on the scalp nodule. Excision was done in the same manner. This nodule or mass which was not well-defined was excised using scissors. was about a 4 mm nodule. The 3rd nodule was about 4 mm as well. This was also excised the same fashion. All incisions were closed with nylon 3-0 interrupted sutures. Bacitracin dressings were then applied. The patient tolerated procedure well. There were no complication noted. He was given wound care instructions. He will be seen in the office for removal sutures.
[2022-01-14 09:08] LABS: Basophils Absolute Auto 0.1 X10*3/uL (0.0-0.2); Basophils Percent Auto 1.3 % (0-2); Eosinophils Percent Auto 0.7 % (0-4); Hematocrit 30.7 % (42.0-52.0); Hemoglobin 9.5 g/dl (14.0-18.0); Imm Gran Abs Auto 0.05 X10*3/uL (0.00-0.03); Imm Gran Pct Auto 1.1 % (0.0-0.4); Lymphocytes Absolute Auto 1.4 X10*3/uL (1.2-4.9); Lymphocytes Percent Auto 32.4 % (20-40); MANUAL DIFF FLAG SCAN; Mean Corpuscular HGB Conc 30.9 g/dl (31.0-36.0); Mean Corpuscular Hemoglobin 23.8 pg (27.0-33.0); Mean Corpuscular Volume 76.8 fL (80.0-98.0); Monocytes Percent Auto 22.5 % (2-11); NRBC Pct Auto 0.9 /100WBC (0.0-0.2); Neutrophils Absolute Auto 1.9 x10*3/uL (2.0-8.3); Platelet Count 250 X10*3/uL (160-400); Red Cell Distribution Width 29.9 % (11.0-16.0); SCAN SMEAR FLAG 1; White Blood Count 4.5 X10*3/uL (4.8-10.8)
[2022-01-14 09:18] LABS: Alanine Aminotransferase 12 U/L (0-40); Albumin Level 4.2 g/dL (3.5-5.0); Alkaline Phosphatase 55 U/L (39-117); Anion Gap 13 (12-20); Aspartate Amino Transferase 13 U/L (5-37); Bilirubin Total 1.2 mg/dL (0.0-1.0); Blood Urea Nitrogen 25 mg/dL (9-16); Calcium 9.6 mg/dL (8.4-10.2); Carbon Dioxide 28 mmol/L (22-29); Chloride 103 mmol/L (96-108); Estimated Glomerular Filt Rate > 60; Glucose Random 94 mg/dL (60-115); Iron 190 mcg/dL (45-160); Percent Iron Saturation 67 % (15-50); Potassium 4.6 mmol/L (3.3-5.1); Sodium 139 mmol/L (135-145); Total Iron Binding Capacity 283 mcg/dL (228-428); Unsaturated Iron Binding 93 ug/dL
[2022-01-14 09:38] LABS: Ferritin 436 ng/mL (20-250)
[2022-01-14 09:45] LABS: Folate 13.3 ng/mL (> or = 4.0); Vitamin B12 710 pg/mL (200-900)
[2022-01-14 10:58] LABS: RET ABN SCTR 1; Reticulocyte Percent 1.3 % (0.5-1.8)
[2022-01-14 12:43] LABS: Immature Retic Fraction 15.8 % (2.3-13.4); Retic HGB Equivalent 24.8 pg (30.0-35.0)
[2022-01-14 12:44] LABS: SLIDE REVIEW VERIFIED
== END 2022-01-14 07:34 | disposition home or self-care (01) ==
LOC: HO.MS 07:33
PROVIDERS: Internal Medicine; PCP Internal Medicine; Visit Provider Surgery
PROC: (CPT 11421; principal; 2022-01-14 08:00)
DX: R22.0 Localized swelling, mass and lump, head (principal); M06.9 Rheumatoid arthritis, unspecified; D64.9 Anemia, unspecified; D61.818 Other pancytopenia; E78.00 Pure hypercholesterolemia, unspecified; Z87.891 Personal history of nicotine dependence
CPT/HCPCS: 11421; 11420 ×2; 36415; 80053; 82607; 82728; 82746; 83540; 85025; 85045; 88305; 88312

== ENCOUNTER → 2022-01-28 08:41 | Outpatient (BNVA) | payer MEDICARE, SELFPAY | PROVIDERS: PCP Internal Medicine; Referring Provider Internal Medicine; Visit Provider Surgery | DX: R22.0 Localized swelling, mass and lump, head (principal) | CPT/HCPCS: 99212 ==

== ENCOUNTER 2022-01-30 14:57 | Outpatient (REF) | payer MEDICARE, SELFPAY ==
--- NOTE | ~2022-01-30 | XR_ITS ---
EXAMINATION: XR CHEST CLINICAL INFORMATION: COPD. Dyspnea. COMPARISON: Previous chest x-ray July [address] August 2020 TECHNIQUE: 2 views of the chest were obtained. FINDINGS: The cardiac and mediastinal contours are stable. The lungs are well inflated. The lungs are clear. There is no pleural effusion or pneumothorax. There are degenerative changes of the spine. XR/XR chest 2V IMPRESSION: Well-inflated lungs. No evidence for acute disease in the chest.
== END 2022-01-30 14:58 | disposition home or self-care (01) ==
LOC: HO.XRAY 14:57
PROVIDERS: PCP Internal Medicine; Visit Provider Internal Medicine
DX: J44.9 Chronic obstructive pulmonary disease, unspecified (principal); R06.00 Dyspnea, unspecified
CPT/HCPCS: 71046

== ENCOUNTER 2022-03-03 08:17 | Outpatient (REF) | payer MEDICARE, SELFPAY ==
--- NOTE | ~2022-03-03 | CT_ITS ---
EXAMINATION: CT CHEST SCREENING CLINICAL INFORMATION: Former smoker. COMPARISON: Previous chest CT August 2020 TECHNIQUE: Multidetector volumetric CT imaging of the chest is performed without contrast using low dose technique. Additional 2D coronal and sagittal reformatted images and axial 3D maximum intensity projection (MIP) images are generated on the CT workstation. This CT examination was performed using dose optimization techniques as appropriate, variously including the following: *Automated exposure control *Adjustment of mA and/or kV according to patient size (this includes techniques or standardized protocols for targeted exams where dose is matched to indication/reason for exam; i.e. extremities or head) *Use of iterative reconstruction technique DLP: 52 mGy-cm FINDINGS: LUNGS: There is evidence of emphysema. There is mild biapical pleural parenchymal scarring. There are small pulmonary nodules that are stable. Largest pulmonary nodules measures 3 mm at the right lung apex axial image 78 series 5 and 4 mm at the left lung apex axial image 72 series 5. No new pulmonary nodule is seen. There are increased peripheral reticular markings at the lung bases questionable for mild interstitial disease. No bronchiectasis or endobronchial or endotracheal lesion. MEDIASTINUM: The ascending thoracic aorta is dilated measuring 4.2 x 4.7 cm axial image 33 series 3. The descending thoracic aorta is slightly dilated measuring up to 3.3 cm. This is similar to previous exam. The heart does not appear enlarged. There is coronary artery calcification. There is no pericardial effusion. There are no enlarged hilar or mediastinal lymph nodes. PLEURA: There is no pleural effusion. No pleural mass or thickening. AXILLA: No lymphadenopathy. UPPER ABDOMEN: There is a 1 cm low-attenuation lesion in the left lobe of the liver that is stable and probably represents a small cyst. OSSEOUS STRUCTURES: There are degenerative changes of the spine. CT/CT lung screening IMPRESSION: Emphysema. Biapical pleural and parenchymal scarring and stable small pulmonary nodules. Coronary artery calcification and dilated ascending thoracic aorta. Question mild interstitial disease. ASSESSMENT: Lung-RADS category 2: Benign RECOMMENDATION: Annual low-dose chest CT follow-up recommended.
== END 2022-03-03 08:18 | disposition home or self-care (01) ==
LOC: HO.CT 08:17
PROVIDERS: PCP Internal Medicine; Visit Provider Physician Assistant Medical
DX: Z12.2 Encounter for screening for malignant neoplasm of respiratory organs (principal); Z87.891 Personal history of nicotine dependence
CPT/HCPCS: 71271

== ENCOUNTER → 2022-03-31 08:37 | Outpatient (BNVA) | payer MEDICARE, SELFPAY | PROVIDERS: PCP Internal Medicine; Referring Provider Internal Medicine; Visit Provider Internal Medicine Cardiovascular Disease | DX: R06.02 Shortness of breath (principal); I71.4 Abdominal aortic aneurysm, without rupture; I71.2 Thoracic aortic aneurysm, without rupture; Z79.899 Other long term (current) drug therapy | CPT/HCPCS: 93005; 99202 ==

== ENCOUNTER → 2022-04-21 08:18 | Outpatient (REF) | payer MEDICARE, SELFPAY ==
--- NOTE | ~2022-04-21 | NM_ITS ---
EXERCISE MYOCARDIAL PERFUSION STUDY INDICATION: Shortness of breath, assess for coronary disease and ischemia TECHNIQUE: The patient was brought in for an exercise perfusion study on 04/21/2022. Patient performed exercise as per [place] protocol and was injected 25 mCi of sestamibi once target heart rate was achieved. Images were obtained using the SPECT gamma camera interlaced with the gating device. Images were obtained in supine position. Resting perfusion study was performed on 04/22/2022. Patient was administered 25 mCi of sestamibi intravenously at rest. Images were then obtained in supine position. Total DLP 73mGy-cm. Images were processed with the software and compared side to side in short axis, horizontal long axis and vertical long axis views. FINDINGS: Raw images were reviewed. The stress perfusion study showed minimally decreased tracer uptake at the apex. No significant change with CT attenuation correction. The gated study shows normal LV systolic function with calculated LVEF of 64%. LV cavity is normal in size. The gated study shows normal wall thickening and contraction of segments. Resting study shows mildly decreased tracer uptake at the apex. Seen with uncorrected and corrected acquisition.. Gating at rest reveals normal wall motion with ejection fraction at 59%. The findings are consistent with no clear reversible defects. Fixed apical defect with normal contractility which could be from artifactual etiology.. NM/NM temi perf SPECT rest & str IMPRESSION: 1. Myocardial perfusion imaging study shows no clear ischemia. Fixed apical defect with normal contractility which could be from artifactual etiology. 2. Gated LVEF is 64% during stress and 59% during rest. 3. Transient ischemic dilatation not present. EKG component of the test reported separately.
--- NOTE | 2022-04-21 08:20 | CA_ITS ---
Acquisition Time: 2022-04-21 08:38:09 Total Exercise Time: 00:04:35 Test Indications: Dyspnea Medications: SEE H Protocol: JUAN Max HR: 137 BPM 93% of Pred: 147 BPM Max BP: 152/078 mmHG Max Work Load: 4.6 METS Exercise stress test with exercise 4 min 35 sec of juan protocol ( stage 1), achieving 91% MPHR, ( reached 85% MPHR at 1 min 48 sec of walking and remained greater than that for the remainder of test), with moderate to severe SOB, no chest discomfort, with isolated PVC, with normotensive and brisk chronotropic response to exercise, without EKG changes meeting criteria for ischemia. In recovery there is a downslope of ST segment inferiorly and V5-V6. Breathing improved in recovery. Nuclear images pending. Test reviewed with Dr Treviño. Referred By: Unruly Shukla Overread By: VIDA FOUNTAIN
== END ==
LOC: HO.CARD 08:18
PROVIDERS: Visit Provider Internal Medicine Cardiovascular Disease
DX: R07.9 Chest pain, unspecified (principal); R06.02 Shortness of breath
CPT/HCPCS: 78452; 93017; A9500

== ENCOUNTER → 2022-05-07 07:11 | Outpatient (REF) | payer MEDICARE, SELFPAY ==
--- NOTE | 2022-05-07 07:14 | CA_ITS ---
Transthoracic Echocardiogram Amended Patient (Last, First, Middle): Landon Villatoro, Gender: Male Date of : 1950 Age: 72 Procedure Date: 05/07/2022 Procedure Type: Transthoracic Echocardiogram Location: OP Height: 182.88 cm Weight: 69.85 kg BSA: 1.91 m2 Heart Rate: bpm BP: 115 / 70 mmHg Flight Test Mechanic: TO Referring MD: Unruly Shukla MD Symptoms: R06.02 - Shortness of breath Study Quality: Fair ECG Rhythm: Sinus Conclusions: - 1. Normal LV systolic function with impaired relaxation filling pattern 2. Trivial aortic regurgitation 3. Normal RV systolic pressure 4. [id number] dilatation of ascending aorta 5. No pericardial effusion Findings Left Ventricle Normal left ventricular size, thickness, and systolic function. The visually estimated ejection fraction is between 55-60%. Spectral Doppler is indicative of an impaired relaxation filling pattern. E/E prime ratio is between 8 and 15 consistent with indeterminate filling pressures. Right Ventricle Normal right ventricular cavity size and systolic function. Atria Both atria are normal in size. There is lipomatous hypertrophy of the interatrial septum. There is no evidence of interatrial shunt. Aortic Valve There is moderate calcification of the aortic valve. There is no aortic valve stenosis. There is trace (trivial) aortic valve regurgitation. Presence of Lambl's excrescence Mitral Valve Normal mitral valve structure and function. There is trace mitral valve regurgitation. There is no mitral valve stenosis. Pulmonic Valve The pulmonic valve is likely normal. Tricuspid Valve Normal tricuspid valve structure. There is trace tricuspid valve regurgitation. The right ventricular systolic pressure is normal. The right ventricular systolic pressure is 23 mmHg. Normal right atrial pressure. There is no evidence of pulmonary hypertension. Great Vessels The pulmonary artery was not well visualized. There is mild dilatation of the ascending aorta measuring 4.40 cm. Venous The inferior vena cava is normal in size and collapses greater than 50% with inspiration. Pericardium/Pleural There is no evidence of pericardial effusion. Prior Study Comparison No prior study available for comparison. Measurements 2D Linear Measurements IVSd: 0.88 0.6-0.9/0.6-1.0 cm LVIDd: 4.89 3.9-5.3/4.2-5.9 cm LVIDd Index: 2.56 2.4-3.2/2.2-3.1 cm/m2 LVIDs: 3.33 2.0-3.6 cm LVPWd: 0.89 0.7-1.1 cm LA Diam: 3.20 2.7-3.8/3.0-4.0 cm LAIDs Index: 1.68 1.5-2.3 cm/m2 LV Mass: 218.56 67-162/88-224 g LV Mass Index: 114.43 43-95/49-115 g/m2 LVOT Diam: 2.40 3.0+(-)1.3 cm 2D Volumes LA Vol: 25.70 2D Systolic Function EF 4C: 49.50 >55% EF 2C: 52.10 >55% Mitral Valve MV Pk E: 0.57 MV PK A: 0.64 MV Decel Time: 269.00 E/A: 0.90 E'Lateral: 8.38 E'Medial: 6.09 E/E' Med: 9.40 E/E' Lat: 6.80 PHT: 79.00 MVA PHT: 2.78 Decel [place]: 2.12 Aortic Valve AoV Pk Jose: 1.10 AoV Mn Jose: 0.71 AoV VTI: 0.24 AoV Pk Grad: 5.00 Aov Mn Grad: 2.00 ELAINE Cont.VTI: 3.38 LVOT LVOT Pk Jose: 0.80 LVOT Mn Jose: 0.44 LVOT VTI: 0.18 LVOT Pk Grad: 3.00 LVOT Mn Grad: 1.00 LVOT Diam: 2.40 LVOT Area: 4.52 Diastolic Function MV Pk E: 0.57 MV Pk A: 0.64 E/A: 0.90 E'Medial: 6.09 E/E' Med: 9.40 E' Laterial: 8.38 E/E' Lat: 6.80 Right Ventricle TAPSE (mm): 25.20 TVS' Jose: 12.00 Tricuspid Valve TR Pk Jose: 2.25 TR Pk Grad: 20.00 RA Press: 3.00 RVSP: 23.00 Great Vessels Aorta Sinus of Valsalva: 4.70 2.0-3.[address] [place]: 3.41 1.7-3.4 cm Ao Asc: 4.40 2.1-3.4 cm Updated in Other Vendor System with Status of Final Unruly Shukla MD electronically signed on 05/13/2022 9:09:55 AM with status of Final
== END ==
LOC: HO.CARD 07:11
PROVIDERS: Visit Provider Internal Medicine Cardiovascular Disease
DX: R06.02 Shortness of breath (principal)
CPT/HCPCS: 93306

== ENCOUNTER 2022-05-08 10:28 | Outpatient (REF) | payer MEDICARE, SELFPAY ==
--- NOTE | ~2022-05-08 | US_ITS ---
EXAMINATION: US RETROPERITONEAL LIMITED (AORTA) CLINICAL INFORMATION: Abdominal aortic aneurysm, without rupture. COMPARISON: Abdominal aorta dated 10/26/2019. TECHNIQUE: Kuhn-scale, color Doppler and spectral Doppler evaluation of the abdominal aorta. FINDINGS: There is atherosclerotic disease and an infrarenal abdominal aortic aneurysm The measurements of the aorta in maximum AP and transverse dimensions respectively are as follows: Proximal: 3.4 x 3.0 cm. Mid: 3.3 x 3.6 cm. Distal: 3.9 x 4.2 cm. PSV: 63.5 cm/s. The measurements of the common iliac arteries in maximum AP and TRV dimensions are as follows: Right Common Iliac Artery: 1.4 x 1.5 cm. Left Common Iliac Artery: 1.3 x 1.7 cm. US/US abdominal aortic aneurysm IMPRESSION: Infrarenal abdominal aortic aneurysm measuring 4.4 x 4.4 cm. Consider further evaluation with CTA or MRA as this has minimally increased in size compared to 10/26/2019.
== END 2022-05-08 10:29 | disposition home or self-care (01) ==
LOC: HO.HMGCX 10:28
PROVIDERS: Visit Provider Internal Medicine Cardiovascular Disease
DX: I71.4 Abdominal aortic aneurysm, without rupture (principal)
CPT/HCPCS: 76706

== ENCOUNTER → 2022-05-19 13:14 | Outpatient (BNVA) | payer MEDICARE, SELFPAY | PROVIDERS: PCP Internal Medicine; Referring Provider Internal Medicine; Visit Provider Internal Medicine Cardiovascular Disease | DX: R06.02 Shortness of breath (principal); I71.4 Abdominal aortic aneurysm, without rupture; I71.2 Thoracic aortic aneurysm, without rupture | CPT/HCPCS: 99212 ==

== ENCOUNTER 2022-06-19 13:22 | Outpatient (REF) | payer MEDICARE, SELFPAY ==
[2022-06-19 13:38] LABS: MANUAL DIFF FLAG NO
[2022-06-19 14:31] LABS: Basophils Absolute Auto 0.1 X10*3/uL (0.0-0.2); Basophils Percent Auto 1.5 % (0-2); Eosinophils Percent Auto 0.7 % (0-4); Hematocrit 33.8 % (42.0-52.0); Hemoglobin 10.2 g/dl (14.0-18.0); Imm Gran Abs Auto 0.08 X10*3/uL (0.00-0.03); Imm Gran Pct Auto 1.4 % (0.0-0.4); Lymphocytes Absolute Auto 1.6 X10*3/uL (1.2-4.9); Lymphocytes Percent Auto 27.4 % (20-40); Mean Corpuscular HGB Conc 30.2 g/dl (31.0-36.0); Mean Corpuscular Hemoglobin 24.5 pg (27.0-33.0); Mean Corpuscular Volume 81.1 fL (80.0-98.0); Monocytes Absolute Auto 0.9 X10*3/uL (0.1-1.2); Monocytes Percent Auto 15.6 % (2-11); NRBC Pct Auto 0.7 /100WBC (0.0-0.2); Neutrophils Absolute Auto 3.2 x10*3/uL (2.0-8.3); Neutrophils Percent Auto 53.4 % (45-73); Platelet Count 226 X10*3/uL (160-400); Red Blood Count 4.17 X10*6/uL (4.60-5.80); White Blood Count 5.9 X10*3/uL (4.8-10.8)
== END 2022-06-19 13:23 | disposition home or self-care (01) ==
LOC: HO.LAB 13:22
PROVIDERS: Internal Medicine; PCP Internal Medicine; Visit Provider Urology
DX: D61.818 Other pancytopenia (principal)
CPT/HCPCS: 36415; 85025

== ENCOUNTER 2022-07-01 10:59 | Outpatient (REF) | payer MEDICARE, SELFPAY ==
[2022-07-01 15:19] LABS: PSA,Total (Free>4and<10) 3.53 ng/mL (0.00-4.00)
== END 2022-07-01 11:00 | disposition home or self-care (01) ==
LOC: HO.10HDL 10:59
PROVIDERS: Visit Provider Urology
DX: R39.12 Poor urinary stream (principal); N32.0 Bladder-neck obstruction; Z12.5 Encounter for screening for malignant neoplasm of prostate
CPT/HCPCS: 36415; 84153

== ENCOUNTER → 2022-07-03 13:20 | Outpatient (BNVA) | payer MEDICARE, SELFPAY | PROVIDERS: PCP Internal Medicine; Visit Provider Urology | DX: N32.0 Bladder-neck obstruction (principal); R39.12 Poor urinary stream; R35.1 Nocturia | CPT/HCPCS: 99212 ==

== ENCOUNTER → 2022-08-17 09:33 | Outpatient (BNVA) | payer MEDICARE, SELFPAY | PROVIDERS: PCP Internal Medicine; Visit Provider Internal Medicine | DX: J44.9 Chronic obstructive pulmonary disease, unspecified (principal); M05.9 Rheumatoid arthritis with rheumatoid factor, unspecified; Z87.891 Personal history of nicotine dependence | CPT/HCPCS: 99212 ==

== ENCOUNTER → 2023-02-09 09:34 | Outpatient (BNVA) | payer MEDICARE, SELFPAY | PROVIDERS: PCP Internal Medicine; Visit Provider Internal Medicine | DX: J44.9 Chronic obstructive pulmonary disease, unspecified (principal); R06.02 Shortness of breath; Z87.891 Personal history of nicotine dependence | CPT/HCPCS: 99212 ==

== ENCOUNTER 2023-03-08 08:34 | Outpatient (REF) | payer MEDICARE, SELFPAY ==
--- NOTE | ~2023-03-08 | CT_ITS ---
EXAMINATION: LUNG CANCER SCREENING CT CHEST WITHOUT CONTRAST CLINICAL INFORMATION: Former smoker with 30 pack year history, quit 4 years ago COMPARISON: 01/01/2022 TECHNIQUE: Multidetector volumetric CT imaging of the chest was obtained noncontrast using low dose screening CT technique. Axial thin section 0.625 mm reformations in soft tissue and lung windows were obtained. Sagittal and coronal reformations were obtained. Axial MIP images were also created and reviewed. This CT examination was performed using dose optimization techniques as appropriate, variously including the following: *Automated exposure control *Adjustment of mA and/or kV according to patient size (this includes techniques or standardized protocols for targeted exams where dose is matched to indication/reason for exam; i.e. extremities or head) *Use of iterative reconstruction technique TOTAL EXAM DLP: 54 mGy-cm FINDINGS: PULMONARY NODULES: No suspicious pulmonary nodules. There are a couple stable nodules at the lung apices measuring 3-4 mm (see marie images). LUNGS / PLEURA: Wbsa-du-[id number] emphysema. Diffuse mild bronchial wall thickening without bronchiectasis. Dependent subsegmental atelectasis in the posterior segment of the right upper lobe and within the masoud pulmonis. Mild subpleural reticulation in the dependent lower lobes bilaterally. No pleural effusion or pneumothorax. MEDIASTINUM / SUNNY: Heart normal in size without pericardial effusion. Stable ascending aortic aneurysm measuring 4.6 x 4.5 cm. No lymphadenopathy. Coronary calcifications present. Imaged thyroid gland unremarkable. CHEST WALL / AXILLA: Unremarkable. UPPER ABDOMEN: Stable benign cyst in the left hepatic lobe. Stable splenomegaly measuring 15 cm. OSSEOUS STRUCTURES: No acute or suspicious osseous abnormalities. CT/CT lung screening IMPRESSION: * No evidence of pulmonary malignancy. * There are no pulmonary nodules that meet criteria for short interval follow-up at this time. * Mild emphysema and chronic airways disease. * Stable ascending aortic aneurysm measuring up to 4.6 cm. ASSESSMENT: Lung RADS category: 2S. Benign appearance or behavior. Nodules with a very low likelihood of becoming a clinically active cancer due to size or lack of growth. Continue annual screening with low-dose CT in 12 months. Probability of malignancy less than 1%. Clinically significant or potentially clinically significant findings (non lung cancer). Management as appropriate to the specific finding. RECOMMENDATION: Follow up low dose CT chest in 1 year.
== END 2023-03-08 08:35 | disposition home or self-care (01) ==
LOC: HO.CT 08:34
PROVIDERS: PCP Internal Medicine; Visit Provider Physician Assistant Medical
DX: Z12.2 Encounter for screening for malignant neoplasm of respiratory organs (principal); Z87.891 Personal history of nicotine dependence
CPT/HCPCS: 71271

== ENCOUNTER → 2023-05-03 08:55 | Outpatient (REF) | payer MEDICARE, SELFPAY ==
--- NOTE | 2023-05-03 08:57 | CA_ITS ---
Transthoracic Echocardiogram Amended Patient (Last, First, Middle): Landon Villatoro, Gender: Male Date of : 1950 Age: 73 Procedure Date: 05/03/2023 Procedure Type: Transthoracic Echocardiogram Location: OP Height: 182.88 cm Weight: 70.31 kg BSA: 1.91 m2 Heart Rate: 63 bpm BP: 120 / 70 mmHg Pharmaceutical Development Technician: FARHAN Referring MD: Unruly Shukla MD Supervisor Baking: Unruly Shukla MD Symptoms: I71.2 - Thoracic aortic aneurysm, without rupture Study Quality: Fair ECG Rhythm: Sinus Conclusions: - 1. Mildly reduced LV ejection fraction 45-50% with impaired relaxation filling pattern 2. Trivial aortic regurgitation 3. Ylff-qr-gqehuodk ascending aortic enlargement at 4.4 cm 4. Normal RV systolic pressure 5. No gross pericardial effusion Findings Left Ventricle Normal left ventricular cavity size. There is normal left ventricular wall thickness. The left ventricular systolic function is mildly decreased. The visually estimated ejection fraction is between 45-50%. Spectral Doppler is indicative of an impaired relaxation filling pattern. E/E prime ratio is between 8 and 15 consistent with indeterminate filling pressures. Peak GLS is -16.3%, which is reduced. Right Ventricle Normal right ventricular cavity size and systolic function. Atria The left atrium is normal in size. Interatrial shunt cannot be excluded. The right atrium was not well visualized. Aortic Valve There is mild calcification of the aortic valve. There is moderate thickening of the aortic valve. There is no aortic valve stenosis. There is trace (trivial) aortic valve regurgitation. Mitral Valve There is mild anterior and posterior mitral leaflet thickening. There is mild mitral annular calcification. There is trace mitral valve regurgitation. There is no mitral valve stenosis. Pulmonic Valve The pulmonic valve was not well visualized. Tricuspid Valve Likely normal tricuspid valve structure and function. There is mild tricuspid valve regurgitation. The right ventricular systolic pressure is normal. The right ventricular systolic pressure is 25 mmHg. Normal right atrial pressure. There is no evidence of pulmonary hypertension. Great Vessels The pulmonary artery was not well visualized. Venous The inferior vena cava is normal in size and collapses greater than 50% with inspiration. Pericardium/Pleural There is no evidence of pericardial effusion. Prior Study Comparison Changes noted compared to prior study dated: 05/07/2022. LV systolic function is reduced Measurements 2D Linear Measurements IVSd: 0.94 0.6-0.9/0.6-1.0 cm LVIDd: 4.65 3.9-5.3/4.2-5.9 cm LVIDd Index: 2.43 2.4-3.2/2.2-3.1 cm/m2 LVIDs: 3.00 2.0-3.6 cm LVPWd: 0.91 0.7-1.1 cm LA Diam: 2.80 2.7-3.8/3.0-4.0 cm LAIDs Index: 1.47 1.5-2.3 cm/m2 LV Mass: 180.38 67-162/88-224 g LV Mass Index: 94.44 43-95/49-115 g/m2 LVOT Diam: 2.40 3.0+(-)1.3 cm 2D Volumes LA Vol: 22.70 2D Systolic Function EF 4C: 50.10 >55% EF 2C: 45.00 >55% EF BiP: 47.50 >55% Mitral Valve MV Pk E: 0.55 MV PK A: 0.85 MV Decel Time: 385.00 E/A: 0.70 E'Lateral: 8.38 E'Medial: 6.42 E/E' Med: 8.60 E/E' Lat: 6.60 PHT: 113.00 MVA PHT: 1.95 Decel [place]: 1.44 Aortic Valve AoV Pk Jose: 1.06 AoV Mn Jose: 0.73 AoV VTI: 0.20 AoV Pk Grad: 4.00 Aov Mn Grad: 3.00 ELAINE Cont.VTI: 3.49 LVOT LVOT Pk Jose: 0.78 LVOT Mn Jose: 0.55 LVOT VTI: 0.16 LVOT Pk Grad: 2.00 LVOT Mn Grad: 1.00 LVOT Diam: 2.40 LVOT Area: 4.52 Diastolic Function MV Pk E: 0.55 MV Pk A: 0.85 E/A: 0.70 E'Medial: 6.42 E/E' Med: 8.60 E' Laterial: 8.38 E/E' Lat: 6.60 Right Ventricle TAPSE (mm): 26.70 TVS' Jose: 10.60 Tricuspid Valve TR Pk Jose: 2.34 TR Pk Grad: 22.00 RA Press: 3.00 RVSP: 25.00 Great Vessels Aorta Sinus of Valsalva: 4.60 2.0-3.5 cm Ao Asc: 4.40 2.1-3.4 cm Ao Arch: 3.40 Pulmonary Valve PV Pk Jose: 0.76 Peak PV Grad: 2.00 Updated in Other Vendor System with Status of Final Unruly Shukla MD electronically signed on 05/03/2023 4:43:42 PM with status of Final
== END ==
LOC: HO.CARD 08:55
PROVIDERS: PCP Internal Medicine; Visit Provider Internal Medicine Cardiovascular Disease
DX: I71.20 Thoracic aortic aneurysm, without rupture, unspecified (principal)
CPT/HCPCS: 93306; 93356

== ENCOUNTER → 2023-05-03 08:57 | Outpatient (BNV) | payer MEDICARE, SELFPAY | PROVIDERS: PCP Internal Medicine; Visit Provider Internal Medicine Cardiovascular Disease | DX: I36.1 Nonrheumatic tricuspid (valve) insufficiency (principal); I34.81 Nonrheumatic mitral (valve) annulus calcification | CPT/HCPCS: 93306 ==

== ENCOUNTER 2023-05-07 08:15 | Outpatient (REF) | payer MEDICARE, SELFPAY ==
--- NOTE | ~2023-05-07 | US_ITS ---
EXAMINATION: US RETROPERITONEAL LIMITED (AORTA) CLINICAL INFORMATION: Abdominal aortic aneurysm without rupture. COMPARISON: Ultrasound aorta 05/08/2022 and 10/26/2019. TECHNIQUE: Kuhn-scale, color Doppler and spectral Doppler evaluation of the abdominal aorta. FINDINGS: Plaque is seen throughout the aorta. There is an infrarenal abdominal aortic aneurysm present with maximal dimensions of 4.5 x 4.8 (previously 4.4 x 4.4 in 2021 and 4.2 x 4.1 in 2019) The measurements of the aorta in maximum AP and transverse dimensions respectively are as follows: Proximal: 3.7 x 3.8 cm. Mid: 2.6 x 3.1 cm. Distal: 2.7 x 2.9 cm. Aneurysm: 4.5 x 4.8 cm PSV: 22 cm/s. The measurements of the common iliac arteries in maximum AP and TRV dimensions are as follows: Right Common Iliac Artery: 2.0 x 1.9 cm. Left Common Iliac Artery: 1.6 x 1.8 cm. US/US abdominal aortic aneurysm IMPRESSION: Infrarenal abdominal aortic aneurysm has increased in size from 4.2 x 4.1 cm in 2021 to 4.5 x 4.8 cm today.
== END 2023-05-07 08:16 | disposition home or self-care (01) ==
LOC: HO.HMGCX 08:15
PROVIDERS: PCP Internal Medicine; Visit Provider Internal Medicine Cardiovascular Disease
DX: I71.40 Abdominal aortic aneurysm, without rupture, unspecified (principal)
CPT/HCPCS: 76706

== ENCOUNTER 2023-05-20 09:08 | Outpatient (AMB) | payer MEDICARE, SELFPAY ==
[2023-05-20 09:15] VITALS: BP 110/70; PULSE 56
--- NOTE | 2023-05-20 09:15 | MHC.OFFVIS ---
Intake Vital Signs 05/20/23 09:15 Height 6 ft Weight 147 lb 11.355 oz BMI 20.0 BP 110/70 Blood Pressure Location Lt brachial Position Sitting Pulse 56 Intake Visit Reasons: 1 year follow up after echo and ultrasound Intake Note: 1 year follow-up after echo and ultrasound Greens Or Grounds Superintendent Required: No Retail Wireless Sales Consultant: Retail Wireless Sales Consultant Present Accompanied by: Sister Allergies adhesive tape Adverse Reaction (Verified 02/09/23 10:24) Rash Medication List - Last Reconciled 05/20/23 by Unruly Shukla MD albuterol sulfate 90 mcg/actuation (ProAir HFA) 2 puffs inhalation Q6H PRN aspirin (Adult Aspirin Regimen) 81 mg PO DAILY atorvastatin 40 mg PO DAILY epoetin liliana (Procrit) 40,000 units subcut QWEEK prednisone 10 mg PO DAILY tiotropium bromide 2.5 mcg/actuation (Spiriva Respimat) 2 puffs inhalation DAILY HPI HPI Comments History of Present Illness Details Landon comes for follow-up. Recent echocardiogram shows reduction LV ejection fraction to 45-50%, on explain. He has also increasing size of these abdominal aortic aneurysm. He is going to see Dr. Montano in the near future. His ascending aortic aneurysm is stable. After noticing is low LV systolic function he has been scheduled for coronary CTA in near future. This is still pending. He has increasing exertional shortness of breath. No associated chest tightness. He remains anemic. Also has underlying COPD seeing Dr. [facility] Medical History Anemia Arthritis COPD (chronic obstructive pulmonary disease) Hematuria Hematuria High cholesterol History of smoking at least 1 pack per day for at least 30 years Hx of peripheral neuropathy Personal history of nicotine dependence Rheumatoid arthritis Scalp mass Surgical History History of back surgery History of hydrocelectomy History of removal of cyst Hx of arthroscopy of right knee Hx of colonoscopy (~2007) Family History Sister Rheumatoid arthritis Cancer Sister Bronchitis Maternal Grandmother Colon cancer Mother Lymph node cancer Social History Household Members: Children Housing: House Are you a primary dog daycare provider to a significant other at home: No Do you presently have visiting nurse or other home services: No Alcohol intake: never Patient Tobacco Use Status: Former Tobacco user Cigarette Packs Per Day: 1.5 Years Smoked: 44 service: No Current occupational status: retired Review of Systems Const Denies chills, Denies fatigue, Denies fever(s), Denies frequent falls, Denies weakness, Denies weight gain and Denies weight loss ENT Denies dizziness Card Denies chest pain, Denies leg edema, Denies lightheadedness, Denies palpitations, Denies dyspnea, Denies dyspnea on exertion, Denies orthopnea and Denies other (loss of consciousness) Resp Denies cough, Denies dyspnea and Denies dyspnea on exertion GI Denies hematochezia and Denies change in stool character Musc Denies abnormal gait, Denies muscle weakness, Denies numbness, Denies radiating pain into limb and Denies tingling Neuro Denies Abnormal speech present, Denies abnormal gait, Denies dizziness, Denies frequent falls, Denies numbness, Denies tingling and Denies weakness Endo Denies fatigue and Denies palpitations Physical Exam Vital Signs: Last Vital Signs Pulse 56 05/20/23 09:15 BP 110/70 05/20/23 09:15 BMI result Body Mass Index 20.0 Const General: cooperative, comfortable, no acute distress, alert and awake Nutritional Appearance: thin Orientation/consciousness: patient oriented x3 Limitations: no limitations Neck Neck: Yes trachea midline, Yes supple and Yes no JVD Chest Chest palpation & inspection: normal inspection of the chest Resp Effort & Inspection: normal respiratory effort Auscultation: clear to auscultation bilaterally and diminished lung sounds Cardio Jugular venous distension: no JVD Palpation: normal PMI Rate: bradycardic Rhythm: regular rhythm Heart sounds: S1 normal heart sound present, S2 normal heart sound present, no click, no gallops, no murmurs and no rubs GI Auscultation: normal bowel sounds Skin General skin exam: no rashes or lesions noted Neuro General: patient oriented x3 and no focal motor deficits Speech: No Abnormal speech present Extrem General: Yes no clubbing, cyanosis or edema Psych Appearance: grossly normal Office Procedures EKG Details: EKG shows sinus bradycardia 56 beats per minute [id number], Complete Assessment & Plan Assessment & Plan (1) Left ventricular systolic dysfunction (LVSD): Code(s): I51.9 - Heart disease, unspecified Plan: New LV systolic dysfunction could compared to last year. He had myocardial perfusion imaging last year which was within normal limits and did not show significant ischemia, could represent balanced ischemia and severe triple-vessel disease given his multiple risk factors. I would advise him to undergo angiogram and is scheduled for undergoing coronary CTA. Further treatment based on the findings. If he has significant coronary artery disease further consideration for revascularization will have to be made with multi disciplinary approach with Hematology as well as pulmonary. Meanwhile will start him on low-dose metoprolol therapy. Eventually add other neurohormonal modulation is. Signs and symptoms of heart failure were discussed. Clinically appears to be euvolemic. Continue aggressive vascular risk factor modification. (2) Ascending aortic aneurysm: Code(s): I71.21 - Aneurysm of the ascending aorta, without rupture Plan: Ascending aortic aneurysm which is mild to moderate and has remained stable. He also has abdominal aortic aneurysm which has increased in size. He is currently seeing Dr. Montano for abdominal aortic aneurysm. His ascending aortic aneurysm needs to be monitored by annual echocardiogram. No interventions required at this point time. Continue aspirin. Continue high-intensity statin therapy. Target goal LDL less than 70 mg/dL. Smoking cessation was applauded. Advised to avoid sudden isometric exercise. Will follow up in the clinic in 3 months time, sooner p.r.n.. Medications: New metoprolol succinate ER (Toprol XL) 25 mg PO DAILY 30 tabs 3RF Coding Level of Care Code Est Pt Level 4 (26952) Diagnoses Left ventricular systolic dysfunction (LVSD) I51.9 Ascending aortic aneurysm I71.21 CPT Codes EKG - CPT: 26464-[id number], Complete ([id number])
== END 2023-05-20 09:45 | disposition home or self-care (01) ==
PROVIDERS: PCP Internal Medicine; Referring Provider Internal Medicine; Visit Provider Internal Medicine Cardiovascular Disease
DX: I51.9 Heart disease, unspecified (principal); I71.21 Aneurysm of the ascending aorta, without rupture
CPT/HCPCS: 93010; 99214

== ENCOUNTER → 2023-05-20 09:08 | Outpatient (BNVA) | payer MEDICARE, SELFPAY | PROVIDERS: PCP Internal Medicine; Referring Provider Internal Medicine; Visit Provider Internal Medicine Cardiovascular Disease | DX: I51.9 Heart disease, unspecified (principal); I71.21 Aneurysm of the ascending aorta, without rupture | CPT/HCPCS: 93005; 99212 ==

== ENCOUNTER 2023-06-29 09:28 | Outpatient (AMB) | payer MEDICARE, SELFPAY ==
--- NOTE | 2023-06-29 09:31 | MHC.OFFVIS ---
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 Pt states he is tired all the time and has occasional chest pain. Pt states he is short of breath all the time when he is moving. Pt states he also get a fluttering feeling in his chest sometimes. Pt denies any dizziness. Pt states he gets bloodwork done every week due to his procrit injections. Pt states his numbers have been on the lower side and he did get a blood transfusion 2 weeks ago. 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 Had originally seen us back in October of 2019. Been lost to follow-up due to COVID. He now presents for surveillance follow-up with ultrasound which had been ordered by Cardiology. Has had no interval issues. [facility] Medical History Personal history of nicotine dependence Scalp mass Hematuria Hematuria COPD (chronic obstructive pulmonary disease) History of smoking at least 1 pack per day for at least 30 years Rheumatoid arthritis High cholesterol Anemia Arthritis Hx of peripheral neuropathy Surgical History History of removal of cyst Hx of colonoscopy (~2007) Hx of arthroscopy of right knee History of hydrocelectomy History of back surgery Family History Sister Rheumatoid arthritis Cancer Sister Bronchitis Maternal Grandmother Colon cancer Mother Lymph node cancer Social History Household Members: Children Housing: House Are you a primary summer child caregiver to a significant other at home: No Do you presently have visiting nurse or other home services: No Alcohol intake: never Patient Tobacco Use Status: Former Tobacco user Cigarette Packs Per Day: 1.5 Years Smoked: 45 service: No Current occupational status: retired Review of Systems Const All systems reviewed & are unremarkable except as noted in HPI and below Reports no additional complaints ENT Reports Normal hearing present Card Denies chest pain, Denies chest pain at rest, Denies chest pain with activity and Denies pedal edema Resp Denies cough GI Denies abdominal pain Musc Denies abnormal gait, Denies muscle cramps and Denies radiating pain into limb Skin/Breast Denies skin ulcer and Denies wounds Neuro Reports Normal hearing present and Denies abnormal gait Psych Reports no additional complaints Physical Exam Vital Signs: Last Vital Signs Pulse 62 06/29/23 09:33 BP 116/60 06/29/23 09:33 Pulse Ox 96 06/29/23 09:33 Oxygen Delivery Method Room Air 06/29/23 09:33 BMI result Body Mass Index 20.3 Const General: cooperative, healthy appearing and comfortable Orientation/consciousness: oriented to person, oriented to place and oriented to time HEENT Head: Yes normal to inspection Neck Neck: Yes normal visual inspection Carotids: no bruits Chest Chest palpation & inspection: normal inspection of the chest Resp Effort & Inspection: normal respiratory effort and able to speak in complete sentences Auscultation: clear to auscultation bilaterally, no crackles, no rales, no rhonchi and no wheezes Cardio Rate: regular rate Rhythm: regular rhythm Heart sounds: S1 normal heart sound present and S2 normal heart sound present Bruits: no carotid bruits Peripheral pulses: Peripheral pulses 2+ throughout GI Inspection: Yes normal to inspection Skin Wounds: no wounds Hair: normal Neuro General: oriented to person, oriented to place and oriented to time Cranial nerves: Yes CN's II-XII intact bilaterally and Yes Normal hearing present Cognition (Neuro): normal cognition Motor exam (neuro): 5/5 motor strength present throughout Extrem Other: venous exam: No significant superficial varicosities or spider telangiectasias, minimal edema General: No clubbing, No cyanosis and No edema Psych Appearance: grossly normal Mental Status: mental status grossly normal Speech and movement: Normal speech and movement present Results Reviewed Results Reviewed: Ultrasound dated E 05/07/2023 demonstrates aneurysm of 4.5 cm. Written report and images were reviewed. Assessment & Plan Assessment & Plan (1) Abdominal aortic aneurysm: Code(s): I71.4 - Abdominal aortic aneurysm, without rupture Qualifiers: Abdominal aorta location: infrarenal aorta Presence of rupture: without rupture Qualified Code(s): I71.43 - Infrarenal abdominal aortic aneurysm, without rupture Plan: In short patient has radiologic evidence of a AAA of 4.5 cm on ultrasound. We have discussed the pathophysiology of aortic aneurysms and the risk of ruptures. We have discussed rupture risk based on size. In addition we have discussed conservative measures and risk factor modification for prevention of increase in size of the aneurysm. the patient is scheduled for surveillance follow-up in approximately 6 months. Thank you for allowing us to participate in the care of this patient Orders: Orders US abdominal aortic aneurysm 6 Months I71.43 - Infrarenal abdominal aortic aneurysm, without rupture Coding Level of Care Code Est Pt Level 4 (14363) Diagnoses Infrarenal abdominal aortic aneurysm (AAA) without rupture I71.43 Abdominal aorta location: infrarenal aorta Presence of rupture: without rupture
[2023-06-29 09:33] VITALS: BP 116/60; PULSE 62; O2SAT 96; BMI 20.3
== END 2023-06-29 09:49 | disposition home or self-care (01) ==
PROVIDERS: PCP Internal Medicine; Visit Provider Surgery Vascular Surgery
DX: I71.43 Infrarenal abdominal aortic aneurysm, without rupture (principal)
CPT/HCPCS: 99213

== ENCOUNTER → 2023-06-29 09:28 | Outpatient (BNVA) | payer MEDICARE, SELFPAY | PROVIDERS: PCP Internal Medicine; Visit Provider Surgery Vascular Surgery | DX: I71.43 Infrarenal abdominal aortic aneurysm, without rupture (principal) | CPT/HCPCS: 99212 ==

== ENCOUNTER 2023-07-06 13:32 | Outpatient (AMB) | payer MEDICARE, SELFPAY ==
--- NOTE | 2023-07-06 13:48 | A.OFFVIS_ITS ---
Intake Intake Visit Reasons: 1Y PSA(SET) Intake Note: Patient is present for Follow Up PSA Urology Med: None Antibiotic Allergy: None Blood Thinner: Aspirin Pharmacy: [facility] Allergies adhesive tape Adverse Reaction (Verified 07/06/23 13:53) Rash HPI HPI Comments History of Present Illness Details Roberto is a pleasant male. He is a patient of . He is seen for the following urologic conditions - lower urinary tract symptoms Continue good bladder emptying PSA stable 12 month follow-up BPH Here for further follow-up after investigations Prostate intervention GreenLight laser prostatectomy October 2021 Prior Prostate medications tamsulosin 0.4 mg Current symptoms weakness of stream, urgency, nocturia Investigations - PSA 01/05 2.6, 07/09 3.5 off finasteride, 07/10 3.2 - Bladder US 01/05 35 gm, minimal residual PFSH Medical History Personal history of nicotine dependence Scalp mass Hematuria Hematuria COPD (chronic obstructive pulmonary disease) History of smoking at least 1 pack per day for at least 30 years Rheumatoid arthritis High cholesterol Anemia Arthritis Hx of peripheral neuropathy Surgical History History of removal of cyst Hx of colonoscopy (~2007) Hx of arthroscopy of right knee History of hydrocelectomy History of back surgery Family History Sister Rheumatoid arthritis Cancer Sister Bronchitis Maternal Grandmother Colon cancer Mother Lymph node cancer Social History Household Members: Children Housing: House Are you a primary care center manager to a significant other at home: No Do you presently have visiting nurse or other home services: No Alcohol intake: never Patient Tobacco Use Status: Former Tobacco user Cigarette Packs Per Day: 1.5 Years Smoked: 45 service: No Current occupational status: retired Review of Systems Const Denies chills and Denies fever(s) Card Reports no additional complaints and Denies syncope Resp Denies cough GI Denies abdominal pain and Denies heartburn Reports as per HPI and Denies change in libido Neuro Denies syncope Psych Denies change in libido Endo Denies change in libido Physical Exam Const General: cooperative, healthy appearing, comfortable and no acute distress Orientation/consciousness: patient oriented x3 HEENT Face and sinus: Yes normal facial exam Mouth: moist mucous membranes Neck Neck: Yes normal visual inspection, Yes full ROM and Yes trachea midline Chest Chest palpation & inspection: normal inspection of the chest Resp Effort & Inspection: normal respiratory effort, able to speak in complete sentences and no respiratory distress GI Inspection: Yes normal to inspection Back/Spine/Pelvis Cervical Spine: normal cervical lordosis Thoracic/Lumbar Spine: thoracic and lumbar spine normal to inspection Skin General skin exam: no rashes or lesions noted Neuro General: patient oriented x3, gait normal, tone normal and moves all extremities Extrem General: Yes normal to inspection and Yes capillary refill normal Assessment & Plan Assessment & Plan (1) Bladder outlet obstruction: Code(s): N32.0 - Bladder-neck obstruction (2) Weak urinary stream: Code(s): R39.12 - Poor urinary stream (3) Nocturia more than twice per night: Code(s): R35.1 - Nocturia Plan Twelve month follow-up PSA Orders: Orders Prostate Specific Antigen 364 Days N32.0 - Bladder-neck obstruction Patient Instructions: Imaging studies, laboratory and physical exam results were discussed and reviewed in detail. No major barriers to patient understanding were identified. An opportunity to ask questions regarding the treatment plan was provided. All questions were answered. The patient expressed understanding and agreement with the above treatment plan. The patient is aware they should contact our office by phone for worsening of their current condition or the appearance of new urologic symptoms. Compliance is encouraged with any medications and followup testing that is ordered. It is a privilege to participate in the urologic care of your patient. If you have any questions or concerns regarding treatment for the above conditions, or other urologic issues, please do not hesitate to contact me. The office telephone contact is [phone]. This note is constructed using voice recognition software. While every effort has been made to ensure accuracy certified wellness program coordinator errors may have been included. Yours sincerely, Dr Martín Awad MD, [facility] - Urology Providers of Expert, Compassionate Care for the Genitourinary System Coding Level of Care Code Est Pt Level 4 (02895) Diagnoses Bladder outlet obstruction N32.0 Weak urinary stream R39.12 Nocturia more than twice per night R35.1
== END 2023-07-06 14:25 | disposition home or self-care (01) ==
PROVIDERS: PCP Internal Medicine; Visit Provider Urology
DX: N32.0 Bladder-neck obstruction (principal); R39.12 Poor urinary stream; R35.1 Nocturia
CPT/HCPCS: 99214

== ENCOUNTER → 2023-07-06 13:32 | Outpatient (BNVA) | payer MEDICARE, SELFPAY | PROVIDERS: Visit Provider Urology | DX: N32.0 Bladder-neck obstruction (principal); R39.12 Poor urinary stream; R35.1 Nocturia | CPT/HCPCS: 99212 ==

== ENCOUNTER 2023-08-17 09:36 | Outpatient (AMB) | payer MEDICARE, SELFPAY ==
--- NOTE | 2023-08-17 09:42 | A.OFFVIS_ITS ---
Intake Vital Signs 08/17/23 09:44 Height 6 ft Weight 156 lb BMI 21.2 BP 100/62 Blood Pressure Location Lt brachial Position Sitting Pulse 47 L Pulse Source Pulse Oximeter Pulse Oximetry (%) 97 Oxygen Delivery Method Room Air Intake Visit Reasons: COPD Intake Note: pt is here for follow up and states he has been short of breath a lot he means crippling, even with putting on his shoes. Web Sizer Required: No Allergies adhesive tape Adverse Reaction (Verified 08/17/23 10:26) Rash Medication List - Last Reconciled 08/17/23 by Ruslan Alexander MD albuterol sulfate 90 mcg/actuation (ProAir HFA) 2 puffs inhalation Q6H PRN aspirin (Adult Aspirin Regimen) 81 mg PO DAILY atorvastatin 40 mg PO DAILY epoetin liliana (Procrit) 40,000 units subcut QWEEK metoprolol succinate ER (Toprol XL) 25 mg PO DAILY prednisone 10 mg PO DAILY tiotropium bromide 2.5 mcg/actuation (Spiriva Respimat) 2 puffs inhalation DAILY HPI COPD HPI Details 73 YEARS OLD GENTLEMAN, VERY PLEASANT, I S HERE FOR HIS 6 MONTHS FOLLOW- UP FOR COPD. IN THE LAST 6 MONTHS HE HAS HAD NO RESPIRATORY INFECTION OR ANY ACUTE EXACERBATION. HE USES SPIRIVA RESPIMAT 2 INHALATIONS DAILY IN A.M. SAYS. HARDLY NEEDS TO USE ALBUTEROL. HE HAS NO COUGH OR WHEEZING. HIS MAIN PROBLEM IS THAT HE GETS SHORT OF BREATH ON MINIMAL EXERTION ESPECIALLY IF WALKING UP HILL OR CLIMBING STAIRS. HE IS KNOWN TO HAVE CHRONIC APLASTIC ANEMIA, AND RECEIVES BLOOD TRANSFUSIONS EVERY FEW MONTHS, IN ADDITION TO PROCRIT 45095 UNITS Q 1 WEEK. HE ALSO HAS CHRONIC RHEUMATOID ARTHRITIS AND IS CHRONICALLY ON PREDNISONE 10 MG DAILY. IN SPITE OF THAT HE HAS NOT GAINED MUCH WEIGHT, HE IS APPETITE REMAINS POOR. HE IS COMPLAINT OF GENERAL WEAKNESS AND GETTING SHORT OF BREATH ON EXERTION IS CONTRIBUTED BY HIS ANEMIA, COPD, WHICH IS MILD, WELL CORONARY ARTERY DISEASE. 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 Personal history of nicotine dependence Scalp mass Hematuria Hematuria COPD (chronic obstructive pulmonary disease) History of smoking at least 1 pack per day for at least 30 years Rheumatoid arthritis High cholesterol Anemia Arthritis Hx of peripheral neuropathy Surgical History History of removal of cyst Hx of colonoscopy (~2007) Hx of arthroscopy of right knee History of hydrocelectomy History of back surgery Family History Sister Rheumatoid arthritis Cancer Sister Bronchitis Maternal Grandmother Colon cancer Mother Lymph node cancer Social History Household Members: Children Housing: House Are you a primary ocular care aide to a significant other at home: No Do you presently have visiting nurse or other home services: No Alcohol intake: never Patient Tobacco Use Status: Former Tobacco user Cigarette Packs Per Day: 1.5 Years Smoked: 45 service: No Current occupational status: retired Review of Systems Const All systems reviewed & are unremarkable except as noted in HPI and below Eyes Reports no additional complaints ENT Reports no additional complaints Card Denies chest pain, Denies irregular heart rhythm and Denies leg edema Resp Reports as per HPI GI Reports no additional complaints Reports no additional complaints Musc Reports arthralgias (Rheumatoid arthritis, being treated) Skin/Breast Reports system reviewed and no additional complaints, except as documented Neuro Reports no additional complaints Psych Reports no additional complaints Physical Exam Vital Signs: Last Vital Signs Pulse 47 L 08/17/23 09:44 BP 100/62 08/17/23 09:44 Pulse Ox 97 08/17/23 09:44 Oxygen Delivery Method Room Air 08/17/23 09:44 BMI result Body Mass Index 21.2 Const General: healthy appearing, comfortable, no acute distress, alert and awake Orientation/consciousness: patient oriented x3 HEENT Head: Yes normal to inspection General nose exam: No nasal polyps present and No nasal discharge present Face and sinus: Yes sinuses nontender Mouth: oropharynx normal Throat: Yes posterior oropharynx normal Eyes General: appearance normal, both eyes and all related structures Neck Neck: Yes normal visual inspection, Yes no lymphadenopathy, Yes trachea midline and Yes no JVD Thyroid: Thyroid normal Chest Chest palpation & inspection: normal inspection of the chest, normal palpation of entire chest wall and no tenderness Resp Other: Percussion note is hyper resonant, breath sounds are slightly distant , equal on both sides,. No audible wheezes or crepitations . Cardio Palpation: normal PMI Rate: regular rate Rhythm: regular rhythm Heart sounds: no gallops and no murmurs Peripheral pulses: Peripheral pulses 2+ throughout GI Palpation (GI): Soft to palpation, nontender, No hepatosplenomegaly present and no masses Auscultation: normal bowel sounds Back/Spine/Pelvis Thoracic/Lumbar Spine: thoracic and lumbar spine normal to inspection Skin General skin exam: no rashes or lesions noted Neuro General: patient oriented x3 and no focal motor deficits Cranial nerves: Yes CN's II-XII intact bilaterally Extrem General: Yes normal to inspection, Yes no clubbing, cyanosis or edema and Yes no calf tenderness Psych Speech and movement: Normal speech and movement present Results Reviewed Results Reviewed: Landon brought copies of reports of CT scan performed at [facility]. 1- CT scan of the neck no discrete neck mass or cervical lymphadenopathy. 2- CT scan of the chest: No metastatic disease or any significant mass 3 mm left upper lung pulmonary nodule probably partially calcified granuloma No other abnormality. 3- CT heart and coronary arteries : Fusiform ascending thoracic aorta aneurysm 4.3 cm Segments of coronary artery calcifications. 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 PULMONARY FUNCTION TEST SHOWED ONLY MINIMAL DEGREE OF SMALL AIRWAY OBSTRUCTIVE DISORDER,(FEF 25-75 =68% ) WHICH GOT CORRECTED WITH BRONCHODILATOR CHALLENGE. [place] : DISCUSSED IN DETAIL WITH THE PATIENT. HE DOES NOT NEED TO USE ANY MAINTENANCE OR CONTROLLER AGENT. HOWEVER HE HAS SPIRIVA RESPIMAT AT HOME, AND HAS BEEN USING P.R.N. WHEN HE GETS MORE SHORT OF BREATH. WILL BE CHECKED EVERY 6 MONTHS. Code(s): J44.9 - Chronic obstructive pulmonary disease, unspecified (2) History of smoking at least 1 pack per day for at least 30 years: Comment: LUCKILY THIS PATIENT HAS QUIT SMOKING. HE IS ACTIVE IN LOW-DOSE CT LUNG SCREENING PROGRAM AND IS ENCOURAGED TO CONTINUE THAT. LAST TO CT SCAN IN FEBRUARY 2022, CATEGORY 2 BENIGN , STABLE. Code(s): Z87.891 - Personal history of nicotine dependence (3) Pancytopenia: Comment: HE HAS PANCYTOPENIA, HEMOGLOBIN DOES FALL DOWN TO LOW 6 G. HE IS BEING FOLLOWED BY DR. FERNANDES [facility], GETTING PERIODIC BLOOD TRANSFUSIONS AND ALSO REMAINS ON PROCRIT. EXPLAINED TO THE PATIENT THAT HIS ANEMIA CONTRIBUTES TO HIS SHORTNESS OF BREATH. Code(s): D61.818 - Other pancytopenia (4) SOB (shortness of breath) on exertion: Comment: DYSPNEA ON EXERTION IS SECONDARY TO COMBINATION OF MILD COPD, ANEMIA, CAD , AND CHRONIC LUNG DISEASE. EXPLAINED TO HIM AND ADVISED HIM TO, AVOID DOING ANY STRENUOUS WORK FOR PROLONGED PERIODS. Code(s): R06.02 - Shortness of breath (5) intermediate (current) use of systemic steroids: Comment: THIS PATIENT HAS BEEN ON PREDNISONE 10 MG A DAY FOR RHEUMATOID ARTHRITIS, IN DEFINITELY. HE TALKED TO ME ABOUT POSSIBLE TAPERING DOWN THE DOES. I ADVISED HIM TO DISCUSS WITH HIS CERTIFIED REGISTERED NURSE ANESTHETIST, DR. FERNANDO, OF [facility]. 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
[2023-08-17 09:44] VITALS: BP 100/62; PULSE 47; O2SAT 97; BMI 21.2
== END 2023-08-17 10:13 | disposition home or self-care (01) ==
PROVIDERS: PCP Internal Medicine; Visit Provider Internal Medicine
DX: J44.9 Chronic obstructive pulmonary disease, unspecified (principal); Z87.891 Personal history of nicotine dependence; D61.818 Other pancytopenia; R06.02 Shortness of breath; Z79.52 Long term (current) use of systemic steroids
CPT/HCPCS: 99213

== ENCOUNTER → 2023-08-17 09:36 | Outpatient (BNVA) | payer MEDICARE, SELFPAY | PROVIDERS: Visit Provider Internal Medicine | DX: J44.9 Chronic obstructive pulmonary disease, unspecified (principal); R06.02 Shortness of breath; D61.818 Other pancytopenia; Z79.52 Long term (current) use of systemic steroids; Z87.891 Personal history of nicotine dependence | CPT/HCPCS: 99212 ==

== ENCOUNTER 2023-12-28 08:14 | Outpatient (REF) | payer MEDICARE, SELFPAY ==
--- NOTE | ~2023-12-28 | US_ITS ---
EXAMINATION: US RETROPERITONEAL LIMITED (AORTA) CLINICAL INFORMATION: Infrarenal abdominal aortic aneurysm, without rupture. COMPARISON: Ultrasound aorta 05/07/2023 and 05/08/2022. TECHNIQUE: Kuhn-scale, color Doppler and spectral Doppler evaluation of the abdominal aorta. Technically limited study secondary to bowel gas. FINDINGS: There is fusiform dilation of the abdominal aorta. Diffuse atherosclerotic plaque is seen. The measurements of the aorta in maximum AP and transverse dimensions respectively are as follows: Proximal: 3.5 x 3.4 cm. Mid: 3.7 x 3.3 cm. Distal: 4.3 x 4.8 cm., Previously 4.5 x 4.8 cm PSV: 49.3 cm/s. The measurements of the common iliac arteries in maximum AP and TRV dimensions are as follows: Right Common Iliac Artery: 1.3 x 1.3 cm. Left Common Iliac Artery: 1.5 x 1.7 cm. US/US abdominal aortic aneurysm IMPRESSION: Stable infrarenal abdominal aortic aneurysm measuring 4.3 x 4.8 cm.
== END 2023-12-28 08:15 | disposition home or self-care (01) ==
LOC: HO.HMGCX 08:14
PROVIDERS: PCP Internal Medicine; Visit Provider Surgery Vascular Surgery
DX: I71.43 Infrarenal abdominal aortic aneurysm, without rupture (principal)
CPT/HCPCS: 76706

== ENCOUNTER 2024-02-08 10:42 | Outpatient (AMB) | payer MEDICARE, SELFPAY ==
[2024-02-08 10:43] VITALS: BMI 20.9
--- NOTE | 2024-02-08 10:43 | A.OFFVIS_ITS ---
Vital Signs 02/08/24 10:43 Height 6 ft Weight 154 lb BMI 20.9 Intake Visit Reasons: 1 yr follow up AAA US 12/28/2023 Intake Note: Patient presents for 1 year follow up , s/p 12/28/23 AAA US. Patient has no complaints. Allergies adhesive tape Adverse Reaction (Verified 08/17/23 10:26) Rash HPI HPI 1 yr follow up AAA US 12/28/2023: Details: Very pleasant 74-year-old gentleman presents for routine surveillance follow-up regarding his aortic aneurysm. Does have a prior history of COPD and pancytopenia. At the current time he is relatively asymptomatic from any issues. Of note he did quit smoking nearly 5 years ago. He now presents for routine follow-up with noninvasive aortic testing [facility] Medical History residential (current) use of systemic steroids Personal history of nicotine dependence Scalp mass Hematuria Hematuria COPD (chronic obstructive pulmonary disease) History of smoking at least 1 pack per day for at least 30 years Rheumatoid arthritis High cholesterol Anemia Arthritis Hx of peripheral neuropathy Surgical History History of removal of cyst Hx of colonoscopy (~2007) Hx of arthroscopy of right knee History of hydrocelectomy History of back surgery Family History Sister Rheumatoid arthritis Cancer Sister Bronchitis Maternal Grandmother Colon cancer Mother Lymph node cancer Social History Household Members: Children Housing: House Are you a primary doggy daycare activities director to a significant other at home: No Do you presently have visiting nurse or other home services: No Alcohol intake: never Patient Tobacco Use Status: Former Tobacco user Cigarette Packs Per Day: 1.5 Years Smoked: 45 service: No Current occupational status: retired Review of Systems Const All systems reviewed & are unremarkable except as noted in HPI and below Reports no additional complaints ENT Reports Normal hearing present Card Denies chest pain, Denies chest pain at rest, Denies chest pain with activity and Denies pedal edema Resp Denies cough GI Denies abdominal pain Musc Denies abnormal gait, Denies muscle cramps and Denies radiating pain into limb Skin/Breast Denies skin ulcer and Denies wounds Neuro Reports Normal hearing present and Denies abnormal gait Psych Reports no additional complaints Physical Exam Vital Signs: BMI result Body Mass Index 20.9 Const General: cooperative, healthy appearing and comfortable Orientation/consciousness: oriented to person, oriented to place and oriented to time HEENT Head: Yes normal to inspection Neck Neck: Yes normal visual inspection Carotids: no bruits Chest Chest palpation & inspection: normal inspection of the chest Resp Effort & Inspection: normal respiratory effort and able to speak in complete sentences Auscultation: clear to auscultation bilaterally, no crackles, no rales, no rhonchi and no wheezes Cardio Rate: regular rate Rhythm: regular rhythm Heart sounds: S1 normal heart sound present and S2 normal heart sound present Bruits: no carotid bruits Peripheral pulses: Peripheral pulses 2+ throughout GI Inspection: Yes normal to inspection Skin Wounds: no wounds Hair: normal Neuro General: oriented to person, oriented to place and oriented to time Cranial nerves: Yes CN's II-XII intact bilaterally and Yes Normal hearing present Cognition (Neuro): normal cognition Motor exam (neuro): 5/5 motor strength present throughout Extrem Other: venous exam: No significant superficial varicosities or spider telangiectasias, minimal edema General: No clubbing, No cyanosis and No edema Psych Appearance: grossly normal Mental Status: mental status grossly normal Speech and movement: Normal speech and movement present Results Reviewed Results Reviewed: Aortic ultrasound dated 12/28/2023 demonstrates stable aortic aneurysm measuring 4.3 x 4.8 cm. There has been no interval change since last evaluated. Assessment & Plan Assessment & Plan (1) Abdominal aortic aneurysm: Code(s): I71.4 - Abdominal aortic aneurysm, without rupture Category: Medical Qualifiers: Abdominal aorta location: infrarenal aorta Presence of rupture: without rupture Qualified Code(s): I71.43 - Infrarenal abdominal aortic aneurysm, without rupture Plan: In short patient has radiologic evidence of a AAA on ultrasound of approximately 4.3 cm. We have discussed the pathophysiology of aortic aneurysms and the risk of ruptures. We have discussed rupture risk based on size. In addition we have discussed conservative measures and risk factor modification for prevention of increase in size of the aneurysm. the patient is scheduled for surveillance follow-up in approximately 1 year. Thank you for allowing us to participate in the care of this patient Orders: Orders US abdominal aortic aneurysm 1 Year I71.43 - Infrarenal abdominal aortic aneurysm, without rupture Coding Level of Care Code Est Pt Level 4 (05636) Diagnoses Infrarenal abdominal aortic aneurysm (AAA) without rupture I71.43 Abdominal aorta location: infrarenal aorta Presence of rupture: without rupture
== END 2024-02-08 11:58 | disposition home or self-care (01) ==
PROVIDERS: PCP Internal Medicine; Visit Provider Surgery Vascular Surgery
DX: I71.43 Infrarenal abdominal aortic aneurysm, without rupture (principal)
CPT/HCPCS: 99213

== ENCOUNTER → 2024-02-08 10:42 | Outpatient (BNVA) | payer MEDICARE, SELFPAY | PROVIDERS: PCP Internal Medicine; Visit Provider Surgery Vascular Surgery | DX: I71.43 Infrarenal abdominal aortic aneurysm, without rupture (principal); Z87.891 Personal history of nicotine dependence | CPT/HCPCS: 99212 ==

== ENCOUNTER 2024-02-22 09:31 | Outpatient (AMB) | payer MEDICARE, SELFPAY ==
[2024-02-22 09:44] VITALS: BP 118/60; PULSE 48; O2SAT 92; BMI 21.8
--- NOTE | 2024-02-22 09:44 | A.OFFVIS_ITS ---
Vital Signs 02/22/24 09:44 Height 6 ft Weight 160 lb 14.999 oz BMI 21.8 BP 118/60 Blood Pressure Location Rt brachial Position Sitting Pulse 48 L Pulse Source Pulse Oximeter Pulse Oximetry (%) 92 Oxygen Delivery Method Room Air Intake Visit Reasons: COPD Intake Note: pt is here for follow up and states mostly short of breath with walking, stairs, mostly exertion. [employer] Required: No Allergies adhesive tape Adverse Reaction (Verified 02/22/24 10:28) Rash Medication List - Last Reconciled 02/22/24 by Ruslan Alexander MD albuterol sulfate 90 mcg/actuation (ProAir HFA) 2 puffs inhalation Q6H PRN aspirin (Adult Aspirin Regimen) 81 mg PO DAILY atorvastatin 40 mg PO DAILY epoetin liliana (Procrit) 40,000 units subcut QWEEK metoprolol succinate ER (Toprol XL) 25 mg PO DAILY prednisone 10 mg PO DAILY umeclidinium 62.5 mcg/actuation (Incruse Ellipta) 1 inh inhalation DAILY 30 days Do you need a note to return to daycare/school/sports/work: No HPI HPI COPD: Details: This 74 years old very pleasant gentleman is here for follow-up after 6 months, for his COPD His pulmonary status has remained fairly stable except for his ongoing complaint of getting short of breath when he climbs stairs or walks fast on the street. At home he moves around for his usual household tasks without much problem. Luckily he has had no chest infection. Still using Incruse Ellipta 1 inhalation daily, and hardly needs to use his albuterol. 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 Personal history of nicotine dependence Scalp mass Hematuria Hematuria COPD (chronic obstructive pulmonary disease) History of smoking at least 1 pack per day for at least 30 years Rheumatoid arthritis High cholesterol Anemia Arthritis Hx of peripheral neuropathy Surgical History History of removal of cyst Hx of colonoscopy (~2007) Hx of arthroscopy of right knee History of hydrocelectomy History of back surgery Family History Sister Rheumatoid arthritis Cancer Sister Bronchitis Maternal Grandmother Colon cancer Mother Lymph node cancer Social History Household Members: Children Housing: House Are you a primary child care team lead to a significant other at home: No Do you presently have visiting nurse or other home services: No Alcohol intake: never Patient Tobacco Use Status: Former Tobacco user Cigarette Packs Per Day: 1.5 Years Smoked: 45 service: No Current occupational status: retired Review of Systems Const All systems reviewed & are unremarkable except as noted in HPI and below Eyes Reports no additional complaints ENT Reports no additional complaints Card Denies chest pain, Denies irregular heart rhythm and Denies leg edema Resp Reports as per HPI GI Reports no additional complaints Reports no additional complaints Musc Reports arthralgias (Rheumatoid arthritis, being treated) Skin/Breast Reports system reviewed and no additional complaints, except as documented Neuro Reports no additional complaints Psych Reports no additional complaints Physical Exam Vital Signs: Last Vital Signs Pulse 48 L 02/22/24 09:44 BP 118/60 02/22/24 09:44 Pulse Ox 92 02/22/24 09:44 Oxygen Delivery Method Room Air 02/22/24 09:44 BMI result Body Mass Index 21.8 Const General: healthy appearing, comfortable, no acute distress, alert and awake Orientation/consciousness: patient oriented x3 HEENT Head: Yes normal to inspection General nose exam: No nasal polyps present and No nasal discharge present Face and sinus: Yes sinuses nontender Mouth: oropharynx normal Throat: Yes posterior oropharynx normal Eyes General: appearance normal, both eyes and all related structures Neck Neck: Yes normal visual inspection, Yes no lymphadenopathy, Yes trachea midline and Yes no JVD Thyroid: Thyroid normal Chest Chest palpation & inspection: normal inspection of the chest, normal palpation of entire chest wall and no tenderness Resp Other: Percussion note is hyper resonant, breath sounds are slightly distant , equal on both sides,. No audible wheezes or crepitations . Cardio Palpation: normal PMI Rate: regular rate Rhythm: regular rhythm Heart sounds: no gallops and no murmurs Peripheral pulses: Peripheral pulses 2+ throughout GI Palpation (GI): Soft to palpation, nontender, No hepatosplenomegaly present and no masses Auscultation: normal bowel sounds Back/Spine/Pelvis Thoracic/Lumbar Spine: thoracic and lumbar spine normal to inspection Skin General skin exam: no rashes or lesions noted Neuro General: patient oriented x3 and no focal motor deficits Cranial nerves: Yes CN's II-XII intact bilaterally Extrem General: Yes normal to inspection, Yes no clubbing, cyanosis or edema and Yes no calf tenderness Psych Speech and movement: Normal speech and movement present Office Procedures Spirometry Testing Spirometry Comments: Spirometry done in the office, Dr. Alexander has the results results scanned to his chart. [id number]- Spirometry Results Reviewed Results Reviewed: SPIROMETRY IN THE OFFICE TODAY FVC 87% FEV1 81% FEF 25-75 = 70% THE NUMBERS ARE SLIGHTLY DECLINED COMPARED TO PFT IN 2020. C/W COPD, MILD. Assessment & Plan Assessment & Plan (1) SOB (shortness of breath) on exertion: Comment: DYSPNEA ON EXERTION IS SECONDARY TO COMBINATION OF MILD COPD, ANEMIA, CAD , AND CHRONIC LUNG DISEASE. Code(s): R06.02 - Shortness of breath Category: Medical Plan: EXPLAINED TO HIM AND ADVISED HIM TO, AVOID DOING ANY STRENUOUS WORK FOR PROLONGED PERIODS. (2) COPD (chronic obstructive pulmonary disease): Comment: DOES HAVE EVIDENCE OF PULMONARY EMPHYSEMA ON THE CT SCAN. PULMONARY FUNCTION TEST SHOWED ONLY MINIMAL DEGREE OF SMALL AIRWAY OBSTRUCTIVE DISORDER,(FEF 25-75 =70 % ) WHICH GOT CORRECTED WITH BRONCHODILATOR CHALLENGE. SPIROMETRY RESULTS TODAY SHOW ONLY SLIGHT DECLINE IN FVC AND FEV1, BUT THE NUMBERS ARE WILL CONSISTENT WITH ONLY MILD COPD. TX : DISCUSSED IN DETAIL WITH THE PATIENT. Code(s): J44.9 - Chronic obstructive pulmonary disease, unspecified Category: Medical Plan: CONTINUE TO USE INCRUSE ELLIPTA 1 INHALATION DAILY. (3) History of smoking at least 1 pack per day for at least 30 years: Comment: LUCKILY THIS PATIENT HAS QUIT SMOKING. HE IS ACTIVE IN LOW-DOSE CT LUNG SCREENING PROGRAM AND IS ENCOURAGED TO CONTINUE THAT. LAST TO CT SCAN IN FEBRUARY 2023, CATEGORY 2 BENIGN , STABLE. He is due to have another CT scan in the next few weeks. Code(s): Z87.891 - Personal history of nicotine dependence Category: Social Hx Plan: as above Orders: Orders AMB Spirometry Testing Today J44.9 - Chronic obstructive pulmonary disease, unspecified Coding Level of Care Code Est Pt Level 3 (51261) Diagnoses SOB (shortness of breath) on exertion R06.02 COPD (chronic obstructive pulmonary disease) J44.9 History of smoking at least 1 pack per day for at least 30 years Z87.891 CPT Codes Spirometry - CPT: 01940- Spirometry ([id number])
== END 2024-02-22 10:14 | disposition home or self-care (01) ==
PROVIDERS: PCP Internal Medicine; Visit Provider Internal Medicine
DX: R06.02 Shortness of breath (principal); J44.9 Chronic obstructive pulmonary disease, unspecified; Z87.891 Personal history of nicotine dependence
CPT/HCPCS: 94010; 99213

== ENCOUNTER → 2024-02-22 09:31 | Outpatient (BNVA) | payer MEDICARE, SELFPAY | PROVIDERS: PCP Internal Medicine; Visit Provider Internal Medicine | DX: J44.9 Chronic obstructive pulmonary disease, unspecified (principal); R06.02 Shortness of breath; Z87.891 Personal history of nicotine dependence | CPT/HCPCS: 94010; 99212 ==

== ENCOUNTER 2024-04-19 10:35 | Outpatient (REF) | payer MEDICARE, SELFPAY ==
--- NOTE | ~2024-04-19 | CT_ITS ---
EXAMINATION: CT LOW-DOSE SCREENING CHEST WITHOUT CONTRAST CLINICAL INFORMATION: Personal history of nicotine dependence. The patient has a 30 pack-year history of smoking, having quit 4 years ago. COMPARISON: Multiple prior CT scans of the chest, the most recent of which is dated 03/08/2023 and the most remote of which is dated 08/20/2020. TECHNIQUE: Multidetector volumetric CT imaging of the chest is performed on a Siemens SOMATOM Definition scanner without contrast using low dose technique. Additional 2D coronal and sagittal reformatted images and axial 3D maximum intensity projection (MIP) images are generated on the CT workstation. This CT examination was performed using dose optimization techniques as appropriate, variously including the following: *Automated exposure control. *Adjustment of mA and/or kV according to patient size (this includes techniques or standardized protocols for targeted exams where dose is matched to indication/reason for exam; i.e. extremities or head). *Use of iterative reconstruction technique. TOTAL EXAM DLP: 49 mGy-cm. CTDIvol: 1.34 mGy. FINDINGS: PULMONARY NODULES: Some small pulmonary nodules are again seen and are stable with none measuring more than 4 mm in size (see marie images). LUNGS: Lungs bilaterally symmetrically expanded. Moderate emphysema is present. Mild bronchial thickening. Subpleural reticulation is again noted in the dependent lower lobes. No focal lung nodule or mass. No effusion or pneumothorax. Central airways patent. MEDIASTINUM: No mediastinal, hilar or axillary adenopathy or free fluid collection. CORONARY ARTERY CALCIFICATION: Extensive. THYROID GLAND: Unremarkable to the extent seen. CARDIOVASCULAR STRUCTURES: Ascending aorta appears aneurysmal at 4.6 cm, similar to prior. Heart size is normal. No pericardial effusion. CHEST WALL/AXILLA: Unremarkable. UPPER ABDOMEN: Spleen is enlarged at 15 cm. Benign cyst present in the left lobe of the liver, unchanged. Otherwise, included portions of the solid organs in the upper abdomen unremarkable on noncontrast imaging. OSSEOUS STRUCTURES: No suspicious focal findings. CT/CT lung screening IMPRESSION: 1. No evidence of pulmonary malignancy. 2. Moderate emphysema. 3. Stable 4.6 cm ascending aortic aneurysm, stable. 4. Splenomegaly. 5. Incidental findings (s category): No significant new incidental findings. ASSESSMENT: Lung-RADS Category 2: Benign appearance or behavior of nodules. N/A. RECOMMENDATION: Continued routine annual low-dose CT lung screening in 1 year is recommended. An order for CT CHEST LOW DOSE CANCER SCREENING ([id number]) can be placed.
== END 2024-04-19 10:36 | disposition home or self-care (01) ==
LOC: HO.CT 10:35
PROVIDERS: PCP Internal Medicine; Visit Provider Physician Assistant Medical
DX: Z12.2 Encounter for screening for malignant neoplasm of respiratory organs (principal); Z87.891 Personal history of nicotine dependence
CPT/HCPCS: 71271

== ENCOUNTER 2024-06-05 08:43 | Outpatient (AMB) | payer MEDICARE, SELFPAY ==
[2024-06-05 08:44] VITALS: BP 100/60; PULSE 56; BMI 20.9
--- NOTE | 2024-06-05 08:44 | A.OFFVIS_ITS ---
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 Accompanied by: Sister Allergies adhesive tape Adverse Reaction (Verified 02/22/24 10:28) Rash Medication List - Last Reconciled 06/05/24 by Unruly Shukla MD albuterol sulfate 90 mcg/actuation (ProAir HFA) 2 puffs inhalation Q6H PRN aspirin (Adult Aspirin Regimen) 81 mg PO DAILY atorvastatin 40 mg PO DAILY epoetin liliana (Procrit) 40,000 units subcut QWEEK metoprolol succinate ER (Toprol XL) 25 mg PO DAILY prednisone 10 mg PO DAILY umeclidinium 62.5 mcg/actuation (Incruse Ellipta) 1 inh inhalation DAILY 30 days HPI Comments Details: Landon comes for follow-up after coronary CTA that was done last year. emt intermediate lack of follow-up since then for unclear reasons. Coronary CTA shows diffuse coronary atherosclerosis with possible total occlusion of the RCA with collaterals with diffuse significant plaque in the LAD, no FFR done also moderately severe plaque in the circumflex artery. He continues to have symptoms exertional shortness of breath, however he suffered some recurrent severe anemia requiring blood transfusion intermittently being followed by [facility] Hematology. He denies any chest pain. Denies any orthopnea, PND, leg edema. He also has underlying COPD. He comes for follow-up after a long gap. Takes all his medications including aspirin, high-intensity statin therapy as metoprolol. He continues to have limiting shortness of breath can only climb 4 steps before having to stop. [facility] Medical History half-way (current) use of systemic steroids Personal history of nicotine dependence Scalp mass Hematuria Hematuria COPD (chronic obstructive pulmonary disease) History of smoking at least 1 pack per day for at least 30 years Rheumatoid arthritis High cholesterol Anemia Arthritis Hx of peripheral neuropathy Surgical History (Reviewed 06/05/24 @ 08:49 by Marychuy Vanessa [facility]) History of removal of cyst Hx of colonoscopy (~2007) Hx of arthroscopy of right knee History of hydrocelectomy History of back surgery Family History (Reviewed 06/05/24 @ 08:49 by Marychuy Vanessa [facility]) Sister Rheumatoid arthritis Cancer Sister Bronchitis Maternal Grandmother Colon cancer Mother Lymph node cancer Social History (Reviewed 06/05/24 @ 08:49 by Marychuy Vanessa [facility]) Household Members: Children Housing: House Are you a primary clinical care coordinator to a significant other at home: No Do you presently have visiting nurse or other home services: No Alcohol intake: never Patient Tobacco Use Status: Former Tobacco user Cigarette Packs Per Day: 1.5 Years Smoked: 45 service: No Current occupational status: retired Review of Systems Const Denies chills, Denies fatigue, Denies fever(s), Denies frequent falls, Denies weakness, Denies weight gain and Denies weight loss ENT Denies dizziness Card Denies chest pain, Denies leg edema, Denies lightheadedness, Denies palpitations, Denies dyspnea and Denies dyspnea on exertion Resp Denies cough, Denies dyspnea and Denies dyspnea on exertion GI Denies hematochezia Musc Denies abnormal gait, Denies muscle weakness, Denies numbness, Denies radiating pain into limb and Denies tingling Neuro Denies Abnormal speech present, Denies abnormal gait, Denies dizziness, Denies frequent falls, Denies numbness, Denies tingling and Denies weakness Endo Denies fatigue and Denies palpitations Physical Exam Vital Signs: Last Vital Signs Pulse 56 06/05/24 08:44 BP 100/60 06/05/24 08:44 BMI result Body Mass Index 20.9 Const General: cooperative, comfortable, no acute distress, alert and awake Nutritional Appearance: thin Orientation/consciousness: patient oriented x3 Limitations: no limitations Neck Neck: Yes trachea midline, Yes supple and Yes no JVD Chest Chest palpation & inspection: normal inspection of the chest Resp Effort & Inspection: normal respiratory effort Auscultation: clear to auscultation bilaterally and diminished lung sounds Cardio Jugular venous distension: no JVD Palpation: normal PMI Rate: bradycardic Rhythm: regular rhythm Heart sounds: S1 normal heart sound present, S2 normal heart sound present, no click, no gallops, no murmurs and no rubs GI Auscultation: normal bowel sounds Skin General skin exam: no rashes or lesions noted Neuro General: patient oriented x3 and no focal motor deficits Speech: No Abnormal speech present Extrem General: Yes no clubbing, cyanosis or edema Psych Appearance: grossly normal Assessment & Plan Assessment & Plan (1) SOB (shortness of breath) on exertion: Comment: DYSPNEA ON EXERTION IS SECONDARY TO COMBINATION OF MILD COPD, ANEMIA, CAD , AND CHRONIC LUNG DISEASE. Code(s): R06.02 - Shortness of breath Category: Medical Plan: Worsening shortness of breath in this elderly gentleman with significant coronary disease noted by coronary CTA last year and then lost to follow-up. Question progressive coronary disease causing his symptoms of exertional shortness of breath which could be anginal equivalent. Also could be contributed and exacerbated by his recurrent severe anemia. He is currently getting blood transfusion. Will discuss with Hematology as to with the prognosis associated with his anemia. I would recommend him to undergo cardiac catheterization to evaluate for coronary anatomy and have invasive evaluation for hemodynamic significance and guide treatment accordingly. Meanwhile advised to continue aspirin, statins and metoprolol. Will add isosorbide 30 mg to his regimen to see if this will improve his symptoms. He does not appear to have underlying significant COPD with bronchospasm that could explain his exertional shortness of breath. Management was discussed with him. Will follow-up echocardiogram near future to assess worsening LV ejection fraction. Management was discussed with him in details. He understands agrees. Will follow up in the clinic after cardiac catheterization. Thank you for allowing me to partake in his care Orders: Orders CA echo transthoracic complete Today I51.9 - Heart disease, unspecified Basic Metabolic Panel Today I51.9 - Heart disease, unspecified Cardiac Cath LT w PCI 2 Weeks I51.9 - Heart disease, unspecified Prothrombin Time INR Today I51.9 - Heart disease, unspecified Complete Blood Count no Diff Today I51.9 - Heart disease, unspecified Medications: New isosorbide mononitrate ER 30 mg PO DAILY 30 tabs 3RF I51.9 - Heart disease, unspecified Coding Level of Care Code Est Pt Level 4 (74959) Diagnoses SOB (shortness of breath) on exertion R06.02
== END 2024-06-05 09:20 | disposition home or self-care (01) ==
PROVIDERS: PCP Internal Medicine; Visit Provider Internal Medicine Cardiovascular Disease
DX: R06.02 Shortness of breath (principal)
CPT/HCPCS: 99214

== ENCOUNTER → 2024-06-05 08:43 | Outpatient (BNVA) | payer MEDICARE, SELFPAY | PROVIDERS: PCP Internal Medicine; Visit Provider Internal Medicine Cardiovascular Disease | DX: I25.10 Atherosclerotic heart disease of native coronary artery without angina pectoris (principal); I51.9 Heart disease, unspecified; J44.9 Chronic obstructive pulmonary disease, unspecified; R06.02 Shortness of breath | CPT/HCPCS: 99212 ==

== ENCOUNTER → 2024-06-12 12:54 | Outpatient (REF) | payer MEDICARE, SELFPAY ==
--- NOTE | 2024-06-12 12:57 | CA_ITS ---
Transthoracic Echocardiogram Patient (Last, First, Middle): Landon Villatoro, Gender: Male Date of : 1950 Age: 74 Procedure Date: 06/12/2024 Procedure Type: Transthoracic Echocardiogram Location: OP Height: 182.88 cm Weight: 69.4 kg BSA: 1.90 m2 Heart Rate: bpm BP: 118 / 68 mmHg [employer] Recruitment Representative: ERNESTINE Referring MD: Unruly Shukla MD Twisting Department End Finder: Unruly Shukla MD Symptoms: I51.9 - Heart disease, unspecified Study Quality: Adequate ECG Rhythm: Sinus Conclusions: - 1. Normal LV ejection fraction 55-60% with impaired relaxation filling pattern 2. Mildly dilated left atrium 3. Trivial aortic regurgitation 4. Normal RV systolic pressure 5. Moderately dilated ascending aorta at 4.6 cm 6. No pericardial effusion Findings Left Ventricle Normal left ventricular size, thickness, and systolic function. The visually estimated ejection fraction is between 55-60%. Spectral Doppler is indicative of an impaired relaxation filling pattern. E/E prime ratio is between 8 and 15 consistent with indeterminate filling pressures. There is mild septal asymmetric hypertrophy. Peak GLS is -22.3%, within normal limits. Right Ventricle Normal right ventricular cavity size and systolic function. Atria The left atrium is mildly dilated. There is no evidence of interatrial shunt. The right atrium is normal in size. Aortic Valve There is mild calcification of the aortic valve. There is mild thickening of the aortic valve. There is no aortic valve stenosis. There is trace (trivial) aortic valve regurgitation. Mitral Valve There is mild anterior and posterior mitral leaflet thickening. There is trace mitral valve regurgitation. There is no mitral valve stenosis. Pulmonic Valve The pulmonic valve is likely normal. Tricuspid Valve Normal tricuspid valve structure. There is trace tricuspid valve regurgitation. The right ventricular systolic pressure is normal. The right ventricular systolic pressure is 30 mmHg. Normal right atrial pressure. There is no evidence of pulmonary hypertension. Great Vessels The pulmonary artery was not well visualized. There is moderate dilatation of the ascending aorta measuring 4.60 cm. Venous The inferior vena cava is normal in size and collapses greater than 50% with inspiration. Pericardium/Pleural There is no evidence of pericardial effusion. Prior Study Comparison Changes noted compared to prior study dated: 05/03/2023. LV systolic function has improved. Ascending aorta is further enlarged to 4.6 cm from 4.4 cm Measurements 2D Linear Measurements IVSd: 1.23 0.6-0.9/0.6-1.0 cm LVIDd: 4.68 3.9-5.3/4.2-5.9 cm LVIDd Index: 2.46 2.4-3.2/2.2-3.1 cm/m2 LVIDs: 3.00 2.0-3.6 cm LVPWd: 1.02 0.7-1.1 cm LA Diam: 3.50 2.7-3.8/3.0-4.0 cm LAIDs Index: 1.84 1.5-2.3 cm/m2 LV Mass: 239.52 67-162/88-224 g LV Mass Index: 126.06 43-95/49-115 g/m2 LVOT Diam: 2.30 3.0+(-)1.3 cm 2D Systolic Function EF 4C: 52.30 >55% EF 2C: 57.20 >55% EF BiP: 54.30 >55% Mitral Valve MV Pk E: 0.60 MV PK A: 0.61 MV Decel Time: 351.00 E/A: 1.00 E'Lateral: 9.79 E'Medial: 5.87 E/E' Med: 10.30 E/E' Lat: 6.20 PHT: 103.00 MVA PHT: 2.14 Decel Brantley: 1.72 Aortic Valve AoV Pk Jose: 1.28 AoV Mn Jose: 0.84 AoV VTI: 0.30 AoV Pk Grad: 7.00 Aov Mn Grad: 3.00 ELAINE Cont.VTI: 2.60 LVOT LVOT Pk Jose: 0.86 LVOT Mn Jose: 0.61 LVOT VTI: 0.19 LVOT Pk Grad: 3.00 LVOT Mn Grad: 2.00 LVOT Diam: 2.30 LVOT Area: 4.15 Diastolic Function MV Pk E: 0.60 MV Pk A: 0.61 E/A: 1.00 E'Medial: 5.87 E/E' Med: 10.30 E' Laterial: 9.79 E/E' Lat: 6.20 Right Ventricle TAPSE (mm): 25.80 TVS' Jose: 13.10 Tricuspid Valve TR Pk Jose: 2.62 TR Pk Grad: 27.00 RA Press: 3.00 RVSP: 30.00 Great Vessels Aorta Sinus of Valsalva: 4.40 2.0-3.[address] [place]: 3.20 1.7-3.4 cm Ao Asc: 4.60 2.1-3.4 cm Updated in Other Vendor System with Status of Final Unruly Shukla MD electronically signed on 06/13/2024 10:41:50 AM with status of Final
== END ==
LOC: HO.CARD 12:54
PROVIDERS: PCP Internal Medicine; Visit Provider Internal Medicine Cardiovascular Disease
DX: I51.9 Heart disease, unspecified (principal)
CPT/HCPCS: 93306

== ENCOUNTER → 2024-06-12 12:57 | Outpatient (BNV) | payer MEDICARE, SELFPAY | PROVIDERS: PCP Internal Medicine; Visit Provider Internal Medicine Cardiovascular Disease | DX: I35.1 Nonrheumatic aortic (valve) insufficiency (principal); I35.8 Other nonrheumatic aortic valve disorders; I42.2 Other hypertrophic cardiomyopathy | CPT/HCPCS: 93306; 93356 ==

== ENCOUNTER → 2024-06-22 23:59 | Outpatient (BNV) | payer MEDICARE, SELFPAY | PROVIDERS: PCP Internal Medicine; Visit Provider Internal Medicine Cardiovascular Disease | DX: R93.1 Abnormal findings on diagnostic imaging of heart and coronary circulation (principal); I20.89 Other forms of angina pectoris | CPT/HCPCS: 93458; 99152 ==